=== PATIENT | female | born 1980 | race Caucasian/White ===

== ENCOUNTER 2017-04-13 23:45 | Inpatient (IN) | payer OTHER ==
[2017-04-13] MEDS ORDERED: CITRIC ACID/SODIUM CITRATE 30 ML UNIT-DOSE CUP PO ONE (23:54)
[2017-04-13] MEDS ORDERED: ELECTROLYTE-148 SOLN 500 ML IV ONE (23:54)
--- NOTE | 2017-04-14 00:02 | HP ---
Past Medical History - Admission Chief Complaint: Labor pain History of Present Illness: 37 yo , @ 40.4 weeks gestation, EDC 04/09/17, presents c/o labor pain. She had one previous . History Source: Patient Limitations to Obtaining History: No Limitations - Past Medical History ...: 8 ...Para: 5 - Past Surgical History Past Surgical History: Yes: Hx Myomectomy: No Hx Transabdominal Cerclage: No - Smoking History Smoking history: Never smoked Aproximately how many cigarettes per day: 0 - Alcohol/Substance Use Hx Alcohol Use: No - Social History History of Recent Travel: No Home Medications - Allergies Allergies/Adverse Reactions: Allergies Allergy/AdvReac Type Severity Reaction Status Date / Time Penicillins Allergy Difficulty Verified 11/30/16 18:12 Breathing - Home Medications Home Medications: Ambulatory Orders NK [No Known Home Medication] 10/03/16 Family Disease History - Family Disease History Family History: Unremarkable Review of Systems - Review of Systems Constitutional: reports: No Symptoms Eyes: reports: No Symptoms HENT: reports: No Symptoms Neck: reports: No Symptoms Respiratory: reports: No Symptoms Gastrointestinal: reports: No Symptoms Genitourinary: reports: Pain Breasts: reports: No Symptoms Reported Musculoskeletal: reports: No Symptoms Integumentary: reports: No Symptoms Neurological: reports: No Symptoms Endocrine: reports: No Symptoms Hematology/Lymphatic: reports: No Symptoms Psychiatric: reports: No Symptoms Pain Intensity: 9 Physical Exam - Maternity Constitutional: Yes: Well Nourished Eyes: Yes: Conjunctiva Clear HENT: Yes: Atraumatic Neck: Yes: Supple, Trachea Midline Cardiovascular: Yes: Regular Rate and Rhythm Lungs: Clear to auscultation - Abdominal Exam/OB Number of Fetuses: Single Presentation: Vertex Contractions: Yes Regularity: Irregular Intensity: Strong - Vaginal Exam/OB Vaginal Bleediing: No Dilatation (cm): 0 Amniotic Membrane Status: Intact Presentation: Vertex/Position Station: -3 - Physical Exam ...Motor Strength: WNL Psychiatric: Yes: Alert, Oriented Problem List - Problems (1) Pain during labor Code(s): O99.89 - OTH DISEASES AND CONDITIONS COMPL PREG/CHLDBRTH R52 - PAIN, UNSPECIFIED Assessment/Plan Active labor Previous Pre op for repeat Consent signed Anesthesia to see patient
--- NOTE | 2017-04-14 00:03 | OP ---
Operative Note - Note: Operative Date: 04/14/17 Pre-Operative Diagnosis: Previous in labor Operation: Repeat Findings: Baby boy in ROT position Post-Operative Diagnosis: Same as Pre-op Surgeon: Kateryna Mendez Channel Process Plant Operator: Heidi Escalera Anesthesia: General Specimens Removed: Placenta Estimated Blood Loss (mls): 700
[2017-04-14 00:13] VITALS: BMI 29.7
[2017-04-14 00:18] LABS: BASOPHIL 0.7 % (0-2.0); EOSINOPHIL 0.6 % (0-4.5); MCHC 34.2 g/dl (32.0-36.0); MEAN CELL VOLUME 93.5 fl (80-96); MEAN PLT VOLUME 9.1 fl (7.5-11.1); NEUTROPHILS 73.1 % (42.8-82.8); PLATELET COUNT 286 K/MM3 (134-434); RDW 13.2 % (11.6-15.6); WHITE BLOOD COUNT 12.8 K/mm3 (4.0-10.0)
[2017-04-14 00:30] LABS: INR 0.95 (0.82-1.09); PROTHROMBIN TIME (PATIENT) 10.4 SEC (9.98-11.88)
[2017-04-14 00:33] LABS: ACTIVATED PTT 25.5 SECONDS (26.9-34.4)
[2017-04-14 01:36] LABS: ANION GAP 12 (8-16); CALCIUM 9.5 mg/dL (8.5-10.1); CO2 25 mmol/L (21-32); CREATININE 0.6 mg/dL (0.55-1.02); GLUCOSE,RANDOM 83 mg/dL (74-106)
[2017-04-14 01:49] LABS: ARTERIAL BLD GAS O2 SATURATION 74.4 % (90-98.9); ARTERIAL BLOOD GAS BASE EXCESS -0.9 meq/l (-2-2); ARTERIAL BLOOD GAS HCO3 25.3 meq/L (22-26); ARTERIAL BLOOD GAS pH 7.33 (7.35-7.45); PT. ON O2? NO
[2017-04-14 01:50] LABS: LPM/O2% 21%; TYPE OF O2 ROOM AIR
[2017-04-14 01:51] LABS: ARTERIAL BLOOD GAS PO2 37.6 mmHg (80-100)
[2017-04-14 01:53] LABS: VENOUS PH 7.35 (7.32-7.42)
[2017-04-14] MEDS ORDERED: oxyCODONE HCL 5 MG TABLET PO PRN (01:55)
[2017-04-14] MEDS ORDERED: METHYLERGONOVINE MALEATE 0.2 MG/1 ML AMP IM PRN (01:55)
--- NOTE | 2017-04-14 02:02 | DS ---
Physical Exam-ADMINISTRATIVE SPECIALIST Vital Signs: Vital Signs Temperature 98.7 F 04/13/17 23:54 Pulse Rate 101 H 04/13/17 23:54 Respiratory Rate 20 04/13/17 23:54 Blood Pressure 139/80 04/13/17 23:54 O2 Sat by Pulse Oximetry (%) Constitutional: Yes: Well Nourished Eyes: Yes: Conjunctiva Clear HENT: Yes: Atraumatic Neck: Yes: Supple, Trachea Midline Cardiovascular: Yes: Regular Rate and Rhythm Respiratory: Yes: Regular, CTA Bilaterally Gastrointestinal: Yes: Normal Bowel Sounds External Genitalia: Yes: Normal Vaginal Exam: Yes: Normal Cervix: Yes: Normal Uterus: Yes: Firm Wound/Incision: Yes: Dequan Intact Neurological: Yes: Alert, Oriented ...Motor Strength: WNL Psychiatric: Yes: Alert, Oriented Labs: CBC, BMP 04/14/17 00:00 04/14/17 00:00 Delivery, Single - Feeding Plan Initial Plan: Elected not to breastfeed exclusively throughout hospitalization Discharge Summary Reason For Visit: ADMIT C/SECTION Current Active Problems Pain during labor (Acute) Status post repeat low transverse section (Acute) Procedures: Principal: Repeat Low Transverse Hospital Course: Routine Post op care Condition: Good - Instructions Diet, Activity, Other Instructions: Regular diet Wound care No driving, no lifting x 4 weeks Disposition: HOME - Home Medications Comprehensive Discharge Medication List: Ambulatory Orders Ferrous Sulfate [Feosol] 325 mg PO DAILY 04/13/17 Vit/Iron Fumarate/FA [ Tablet] 1 tablet PO DAILY 04/13/17 Albuterol Sulfate Inhaler - 2 puff PO PRN PRN 04/14/17 Salmeterol/Fluticasone [Advair 250Mcg/50Mcg -] 1 inh PO PRN PRN 04/14/17
[2017-04-14] MEDS ORDERED: ONDANSETRON 4 MG/2 ML VIAL IVPUSH PRN (02:19)
[2017-04-14] MEDS ORDERED: PROMETHAZINE HCL 25 MG/1 ML VIAL IVPB PRN (02:19)
[2017-04-14] MEDS: HYDROmorphone *PCA* 10MG/50ML DISP.SYRIN PCA SCH ×2 (02:31→15:05)
--- NOTE | 2017-04-14 08:53 | OP ---
DATE OF OPERATION: 04/13/2017 PREOPERATIVE DIAGNOSIS: Previous section, in labor. POSTOPERATIVE DIAGNOSIS: Previous section, in labor. PROCEDURE: Repeat low transverse section. SURGEON: Kateryna Mendez MD ENVIRONMENTAL HEALTH PHYSICIAN: Heidi Escalera DO ANESTHESIA: General. COMPLICATIONS: None. ESTIMATED BLOOD LOSS: 700 mL DESCRIPTION OF PROCEDURE: Patient was taken to the operating room where a spinal anesthesia was attempted. Patient was then prepped and draped in proper sterile fashion. When spinal anesthesia was not found to be adequate, general anesthesia was performed. A Pfannenstiel skin incision was made and carried down to the underlying layer of fascia. The fascia was incised in the midline and extended laterally. The superior aspect of the fascial incision was then grasped with a Solomon clamp, elevated, and the rectus muscle dissected off bluntly. Attention was then turned to the anterior aspect of the fascial incision which, in a similar fashion, was then grasped with a Solomon clamp, elevated, and the rectus muscle dissected off bluntly. The rectus muscle was then in the midline. The peritoneum identified and entered sharply with the Metzenbaum scissors. The vesicouterine peritoneum was then grasped with a pickup and entered with the Metzenbaum scissors. This incision was extended laterally, and a bladder flap created digitally. The bladder blade was inserted. Then, using a 10 blade, the lower uterine segment was incised and extended laterally. Then, the head delivered atraumatically. Nose and mouth were suctioned, and the cord clamped and cut. The infant was handed to the waiting employment specialist/program manager. The placenta was removed manually. The uterus exteriorized and cleared of all clots and debris. The uterine incision was repaired using 0 Biosyn in a running locked fashion. A second layer of the same suture was used as a means to provide excellent hemostasis. Then, the pelvis was completely irrigated. The uterus was returned to the abdomen. The peritoneum was closed using 2-0 Biosyn. The fascia was reapproximated using 0 Vicryl in a running fashion, and the skin was closed with guido. Patient tolerated the procedure well. Patient was then taken to PACU in stable condition. PATHOLOGY: Placenta. Melany [id number]
[2017-04-14] MEDS ORDERED: D5 LR IV SCH (09:30)
[2017-04-14] MEDS ORDERED: KCL IV SCH (09:30)
[2017-04-14] MEDS: D5W-LR W/ 20 UNITS OXYTOCIN 1,000 ML IV SCH (10:00)
[2017-04-14] MEDS ORDERED: PCA PUMP KEY 1 EACH EACH ONE ×6 (12:37→18:54)
[2017-04-14] MEDS: SIMETHICONE 80 MG TAB.CHEW (FP) PO PRN ×2 (12:52→20:43)
--- NOTE | 2017-04-14 13:52 | PN ---
Progress Note (short form) - Note Progress Note: Anesthesiology Pain Service POD#0 s/p C/S. Pt. on Dilaudid CUTTING MACHINE OFFBEARER post-op. Was c/o increased pain earlier and has since received bolus dosing in addition to CUTTING MACHINE OFFBEARER; she now feels a little better. Will continue CUTTING MACHINE OFFBEARER for now as well as intermittent breakthrough doses as ordered. VSS.
--- NOTE | 2017-04-14 14:17 | PN ---
Post Progress Note - Subjective Subjective: 37 yo Para 6 status post , seen and evaluated. Doing well. Post Day: 1 Type of Delivery: Repeat C/S Vital Signs: Vital Signs Temperature 98.1 F 04/14/17 07:15 Pulse Rate 77 04/14/17 07:15 Respiratory Rate 20 04/14/17 07:15 Blood Pressure 106/54 04/14/17 07:15 O2 Sat by Pulse Oximetry (%) 100 04/14/17 03:10 Breast Exam: Yes: Soft Incision: Yes: Dressing dry and intact Lochia: Yes: Rubra Lochia, amount: Small Extremities: Yes: Calves non-tender Perineum: Yes: Intact Activity: Other (She's lying in bed) - Labs Labs: CBC WBC 12.8 K/mm3 (4.0-10.0) H 04/14/17 00:00 RBC 3.96 M/mm3 (3.60-5.2) 04/14/17 00:00 Hgb 12.7 GM/dL (10.7-15.3) 04/14/17 00:00 Hct 37.0 % (32.4-45.2) 04/14/17 00:00 MCV 93.5 fl (80-96) 04/14/17 00:00 MCHC 34.2 g/dl (32.0-36.0) 04/14/17 00:00 RDW 13.2 % (11.6-15.6) 04/14/17 00:00 Plt Count 286 K/MM3 (134-434) D 04/14/17 00:00 MPV 9.1 fl (7.5-11.1) 04/14/17 00:00 Neutrophils % 73.1 % (42.8-82.8) 04/14/17 00:00 Lymphocytes % 18.6 % (8-40) 04/14/17 00:00 Monocytes % 7.0 % (3.8-10.2) 04/14/17 00:00 Eosinophils % 0.6 % (0-4.5) 04/14/17 00:00 Basophils % 0.7 % (0-2.0) 04/14/17 00:00 Problem List - Problems (1) Pain during labor Code(s): O99.89 - OTH DISEASES AND CONDITIONS COMPL PREG/CHLDBRTH R52 - PAIN, UNSPECIFIED Assessment/Plan Status post Ambulation Analgesia as needed Continue Post op care
[2017-04-14] MEDS ORDERED: HYDROmorphone *PCA* 10MG/50ML DISP.SYRIN PCA ONE (14:59)
[2017-04-14] MEDS ORDERED: ALBUTEROL SO4 0.083% IH SOL 2.5 MG/3 ML VIAL.NEB. NEB ONE (20:12)
[2017-04-14] MEDS: IBUPROFEN 600 MG TABLET (FP) PO PRN (20:42)
[2017-04-14] MEDS: ACETAMINOPHEN 325 MG TABLET (FP) PO PRN (21:00)
[2017-04-15] MEDS: ACETAMINOPHEN 325 MG TABLET (FP) PO PRN ×5 (00:29→20:32)
[2017-04-15] MEDS: SIMETHICONE 80 MG TAB.CHEW (FP) PO PRN ×5 (00:29→20:32)
[2017-04-15] MEDS: IBUPROFEN 600 MG TABLET (FP) PO PRN ×5 (00:30→20:31)
[2017-04-15] MEDS: diphenhydrAMINE HCL 25 MG CAPSULE (FP) PO PRN ×3 (01:31→21:17)
[2017-04-15] MEDS ORDERED: BISACODYL 10 MG SUPP.RECT RC PRN (01:55)
--- NOTE | 2017-04-15 08:16 | PN ---
Progress Note (short form) - Note Progress Note: pod 2 s/p c/s doing well. has cramps CBC, BMP 04/14/17 00:00 04/14/17 00:00 Last Vital Signs Temp Pulse Resp BP Pulse Ox 98.5 F 73 18 110/67 100 04/15/17 00:41 04/15/17 00:41 04/15/17 00:41 04/15/17 00:41 04/14/17 03:10 abdomen soft, no distension, no cva , incision dry, clean no calf tenderness plan ambulate, advance diet , cbc in am
[2017-04-15 08:38] LABS: BASOPHIL 0.4 % (0-2.0); EOSINOPHIL 0.4 % (0-4.5); MCH 32.6 pg (25.7-33.7); MCHC 33.9 g/dl (32.0-36.0); MEAN CELL VOLUME 96.2 fl (80-96); MEAN PLT VOLUME 8.9 fl (7.5-11.1); NEUTROPHILS 83.4 % (42.8-82.8); PLATELET COUNT 201 K/MM3 (134-434); RDW 13.6 % (11.6-15.6); WHITE BLOOD COUNT 14.9 K/mm3 (4.0-10.0)
[2017-04-15] MEDS ORDERED: ALBUTEROL SO4 0.083% IH SOL 2.5 MG/3 ML VIAL.NEB. NEB ONE (10:30)
[2017-04-15] MEDS ORDERED: PNEUMOC 13-VAL CONJ-DIP CRM/PF 0.5 ML DISP.SYRIN IM ONE (11:00)
--- NOTE | 2017-04-15 11:29 | PN ---
Progress Note (short form) - Note Progress Note: Anesthesia post op note, POD#1 S/P repeat , with failed spinal, converted to GETA. Pat seen and examined. Pat On Po meds, BACTERIOLOGIST INDUSTRIAL D/C'd. Pain well controlled. Pat is complaining about her breathing, feels short of breath when tries to walk. Tightness in chest while sitting, "feels like my asthma". History of multiple pnumonias , last one in her first trimester. Required 2-3 po steroid treatments during her . Also C/O swelling in her abdomen. Pat sitting at the edge of the bed. Paient breathing 14-16/min, not in acute distress, coughing few times while talking, hoarse voice.SpO2:98% VSS. Pulm: CTA, Bilat. No whhezing or ronchi.Cor: RRR. No GMR. Abd, distended, No TTP. Patient is receiving breathing treatment daily. suggesting news camera person consultation for assessment and possible steroid treatment. also informed OB to evaluate her abdomen. Constipation? Message left for Dr. Davies. Informed the RN. Will follow up.
[2017-04-15] MEDS ORDERED: ALBUTEROL SO4 0.083% IH SOL 2.5 MG/3 ML VIAL.NEB. NEB PRN (11:35)
[2017-04-16] MEDS: SIMETHICONE 80 MG TAB.CHEW (FP) PO PRN ×4 (01:11→20:21)
[2017-04-16] MEDS: ACETAMINOPHEN 325 MG TABLET (FP) PO PRN ×4 (01:11→20:21)
[2017-04-16] MEDS: IBUPROFEN 600 MG TABLET (FP) PO PRN ×4 (01:11→20:21)
--- NOTE | 2017-04-16 08:16 | PN ---
Post Progress Note - Subjective Subjective: c/o gaseous discomfort voiding without difficulty no c/o breathing difficulty today. Post Day: 2 Type of Delivery: Repeat C/S Vital Signs: Vital Signs Temperature 97.9 F 04/16/17 06:13 Pulse Rate 63 04/16/17 06:13 Respiratory Rate 20 04/16/17 06:13 Blood Pressure 105/55 04/16/17 06:13 O2 Sat by Pulse Oximetry (%) 100 04/15/17 21:00 Breast Exam: Yes: Soft. No: Engorged Uterus: Yes: Fundus Firm, Fundus below umbilicus, Non-tender Incision: Yes: Dressing dry and intact (to be changed ) Abdomen/GI: Yes: Abdomen soft, Abdominal Distention (BS active ), Tender, Passing flatus, Tolerating PO (diet ) Lochia: Yes: Rubra Lochia, amount: Moderate Extremities: Yes: Calves non-tender Perineum: Yes: Intact Activity: Ambulating - Labs Labs: CBC WBC 14.9 K/mm3 (4.0-10.0) H 04/15/17 07:20 RBC 3.36 M/mm3 (3.60-5.2) L 04/15/17 07:20 Hgb 11.0 GM/dL (10.7-15.3) D 04/15/17 07:20 Hct 32.4 % (32.4-45.2) 04/15/17 07:20 MCV 96.2 fl (80-96) H 04/15/17 07:20 MCHC 33.9 g/dl (32.0-36.0) 04/15/17 07:20 RDW 13.6 % (11.6-15.6) 04/15/17 07:20 Plt Count 201 K/MM3 (134-434) D 04/15/17 07:20 MPV 8.9 fl (7.5-11.1) 04/15/17 07:20 Neutrophils % 83.4 % (42.8-82.8) H 04/15/17 07:20 Lymphocytes % 9.5 % (8-40) D 04/15/17 07:20 Monocytes % 6.3 % (3.8-10.2) 04/15/17 07:20 Eosinophils % 0.4 % (0-4.5) 04/15/17 07:20 Basophils % 0.4 % (0-2.0) 04/15/17 07:20 Assessment/Plan stable Plan ct incentive spirometer encourage ambulaton
--- NOTE | 2017-04-16 14:05 | PN ---
Progress Note (short form) - Note Progress Note: janette Note: Anesthesia post op note,POD#2 S/P under GETA. Pat seen and examined,VSS. No apparent post anesthesia complications. Improved breathing with incentive spirometry and inhalation treatments. Signed off.
[2017-04-16] MEDS: D5W-LR W/ 20 UNITS OXYTOCIN 1,000 ML IV SCH (15:29)
[2017-04-17] MEDS: IBUPROFEN 600 MG TABLET (FP) PO PRN ×4 (04:01→20:26)
[2017-04-17] MEDS: SIMETHICONE 80 MG TAB.CHEW (FP) PO PRN ×4 (04:01→20:26)
[2017-04-17] MEDS: ACETAMINOPHEN 325 MG TABLET (FP) PO PRN ×4 (04:01→20:26)
[2017-04-17 07:30] LABS: BASOPHIL 0.4 % (0-2.0); EOSINOPHIL 1.5 % (0-4.5); MCH 32.3 pg (25.7-33.7); MCHC 33.9 g/dl (32.0-36.0); MEAN CELL VOLUME 95.1 fl (80-96); MEAN PLT VOLUME 8.7 fl (7.5-11.1); NEUTROPHILS 77.3 % (42.8-82.8); PLATELET COUNT 224 K/MM3 (134-434); RDW 13.4 % (11.6-15.6); WHITE BLOOD COUNT 9.2 K/mm3 (4.0-10.0)
--- NOTE | 2017-04-17 07:39 | PN ---
Post Progress Note - Subjective Subjective: c/o pain on rt side of incision passing flatus Post Day: 3 Type of Delivery: Repeat C/S Vital Signs: Vital Signs Temperature 98.9 F 04/16/17 20:50 Pulse Rate 83 04/16/17 20:50 Respiratory Rate 20 04/16/17 20:50 Blood Pressure 111/67 04/16/17 20:50 O2 Sat by Pulse Oximetry (%) 100 04/15/17 21:00 Breast Exam: Yes: Soft, Other (BF ). No: Engorged, Cracked Nipples Uterus: Yes: Fundus Firm, Fundus below umbilicus, Non-tender Incision: Yes: [place] intact. No: Redness, Oozing Abdomen/GI: Yes: Abdomen soft, Passing flatus, Tolerating PO (diet). No: Abdominal Distention, Tender Lochia: Yes: Rubra Lochia, amount: Moderate Extremities: Yes: Calves non-tender, Edema Perineum: Yes: Intact Activity: Ambulating - Labs Labs: CBC WBC 14.9 K/mm3 (4.0-10.0) H 04/15/17 07:20 RBC 3.36 M/mm3 (3.60-5.2) L 04/15/17 07:20 Hgb 11.0 GM/dL (10.7-15.3) D 04/15/17 07:20 Hct 32.4 % (32.4-45.2) 04/15/17 07:20 MCV 96.2 fl (80-96) H 04/15/17 07:20 MCHC 33.9 g/dl (32.0-36.0) 04/15/17 07:20 RDW 13.6 % (11.6-15.6) 04/15/17 07:20 Plt Count 201 K/MM3 (134-434) D 04/15/17 07:20 MPV 8.9 fl (7.5-11.1) 04/15/17 07:20 Neutrophils % 83.4 % (42.8-82.8) H 04/15/17 07:20 Lymphocytes % 9.5 % (8-40) D 04/15/17 07:20 Monocytes % 6.3 % (3.8-10.2) 04/15/17 07:20 Eosinophils % 0.4 % (0-4.5) 04/15/17 07:20 Basophils % 0.4 % (0-2.0) 04/15/17 07:20 Assessment/Plan stable plan ct po care
[2017-04-17] MEDS ORDERED: oxyCODONE HCL 5 MG TABLET ONE (09:13)
[2017-04-18] MEDS: SIMETHICONE 80 MG TAB.CHEW (FP) PO PRN ×2 (01:29→08:26)
[2017-04-18] MEDS: ACETAMINOPHEN 325 MG TABLET (FP) PO PRN ×2 (01:29→08:27)
[2017-04-18] MEDS: IBUPROFEN 600 MG TABLET (FP) PO PRN ×2 (01:31→08:26)
[2017-04-18 08:43] VITALS: BP 114/76; PULSE 74; TEMP 98.8
--- NOTE | 2017-04-18 10:42 | PN ---
Post Progress Note - Subjective Subjective: c/o pain on Rt side of incision gaseous discomfort is less bm not done yet Post Day: 4 Type of Delivery: Repeat C/S Vital Signs: Vital Signs Temperature 98.8 F 04/18/17 08:39 Pulse Rate 74 04/18/17 08:39 Respiratory Rate 20 04/18/17 08:39 Blood Pressure 114/76 04/18/17 08:39 O2 Sat by Pulse Oximetry (%) 100 04/15/17 21:00 Breast Exam: Yes: Soft, Other (BF ). No: Engorged Uterus: Yes: Fundus Firm, Fundus below umbilicus, Non-tender Incision: Yes: Guido intact (guido removed , wound healing satisfactory , edges well approximated, steri strips used ). No: Redness, Oozing Abdomen/GI: Yes: Abdomen soft, Passing flatus, Tolerating PO (diet ). No: Abdominal Distention, Tender Lochia: Yes: Rubra Lochia, amount: Moderate Extremities: Yes: Calves non-tender Perineum: Yes: Intact Activity: Ambulating - Labs Labs: CBC WBC 9.2 K/mm3 (4.0-10.0) D 04/17/17 06:00 RBC 3.27 M/mm3 (3.60-5.2) L 04/17/17 06:00 Hgb 10.5 GM/dL (10.7-15.3) L 04/17/17 06:00 Hct 31.1 % (32.4-45.2) L 04/17/17 06:00 MCV 95.1 fl (80-96) 04/17/17 06:00 MCHC 33.9 g/dl (32.0-36.0) 04/17/17 06:00 RDW 13.4 % (11.6-15.6) 04/17/17 06:00 Plt Count 224 K/MM3 (134-434) 04/17/17 06:00 MPV 8.7 fl (7.5-11.1) 04/17/17 06:00 Neutrophils % 77.3 % (42.8-82.8) 04/17/17 06:00 Lymphocytes % 13.4 % (8-40) D 04/17/17 06:00 Monocytes % 7.4 % (3.8-10.2) 04/17/17 06:00 Eosinophils % 1.5 % (0-4.5) D 04/17/17 06:00 Basophils % 0.4 % (0-2.0) 04/17/17 06:00 Assessment/Plan stable plan Dulcolax suppository [place] before discharge . discharge today. follow up in the clinic in 2 weeks
--- NOTE | 2017-04-18 10:55 | PATH ---
Surgical Pathology Report Patient Name: VINCE PARIKH Med. Rec. #: [id number] /Age/Gender: 1980 (Age: 37) / F Account: [id number] Location: [facility] OBS/CAP MAKER Taken: 04/14/2017 Received: 04/14/2017 Reported: 04/18/2017 Physicians: Kateryna Mendez M.D. Specimen(s) Received PLACENTA Clinical History , 40.4 weeks, x4, at 32 weeks, previous c/section in labor; IAB x1, SAB x1; asthma, anemia, depression, PID, advanced maternal age, kidney stones C/section Final Diagnosis PLACENTA, DELIVERY: FOCALLY DISRUPTED THIRD TRIMESTER PLACENTA WITH MILD INCREASE IN PREVILLOUS, PERIVILLOUS, AND PRECHORIONIC FIBRIN DEPOSITION, CALCIFICATIONS, THREE VESSEL UMBILICAL CORD, AND PLACENTAL MEMBRANES WITH FOCAL AMNION HYPERPLASIA AND FOCAL LAMELLAR NECROSIS. Electronically Signed Floyd Ayala M.D. Gross Description The specimen is received fresh, labeled "placenta" and is a 409 gram, 18.0 x 15.5 x 2.7 cm placenta with attached membranes and umbilical cord. The attached membranes are hopkins, thickened cloudy and insert marginally. The umbilical cord measures 31 cm in length and averages 0.9 cm in diameter. The cord inserts centrally. No true knots or strictures are identified. Cut surface of the umbilical cord reveals 3 vessels. The surface is park-blue with fibrin deposition and appropriate caliber vessels. The maternal surface is red-brown with focal defects. Sectioning reveals red-brown, spongy parenchyma. No focal lesions are identified. In Flight Refueling Manager sections are submitted in three cassettes as follows: 1- membrane rolls and umbilical cord; 2-3- full thickness sections of placenta. /04/15/2017 saudi04/15/2017
== END 2017-04-18 11:40 | disposition home or self-care (01) | DRG 540 ==
LOC: JLDR 23:45 → J3W 04-14 04:05
PROVIDERS: ADMIT Obstetrics & Gynecology; ATTEND Obstetrics & Gynecology
PROC: 10D00Z1 Extraction of Products of Conception, Low, Open Approach (ICD-10-PCS; principal; 2017-04-14)
DX: O34.211 Maternal care for low transverse scar from previous cesarean delivery (principal); Z3A.40 40 weeks gestation of pregnancy; Z37.0 Single live birth
CPT/HCPCS: 36415; 36600; 71020-TC; 80048; 82803; 85025; 85610; 85730; 86593; 86850; 86900; 86901; 88307-TC; 90670; 94010; 94640

== ENCOUNTER 2021-08-05 20:35 | Emergency (ER) | payer OTHER ==
[2021-08-05 20:40] VITALS: BP 133/77; PULSE 93; TEMP 97.6; BMI 26.2
[2021-08-05] MEDS ORDERED: PANTOPRAZOLE SODIUM 40 MG VIAL IVPUSH ONE (20:56)
[2021-08-05] MEDS ORDERED: ACETAMINOPHEN 1000 MG/100 ML VIAL IVPB ONE ×2 (20:56→21:08)
[2021-08-05] MEDS ORDERED: ACETAMINOPHEN INJECTION 100 ML IVPB ONE (21:18)
[2021-08-05 22:19] LABS: BASO % 0.6 % (0-2.0); EOS % 2.7 % (0-4.5); HEMATOCRIT 39.3 % (32.4-45.2); HEMOGLOBIN 13.4 GM/dL (10.7-15.3); LYMPH % 26.1 % (8-40); MCH 29.3 pg (25.7-33.7); MCHC 34.2 g/dl (32.0-36.0); MEAN CELL VOLUME 85.8 fl (80-96); MEAN PLT VOLUME 8.2 fl (7.5-11.1); MONO % 8.3 % (3.8-10.2); NEUT % 62.3 % (42.8-82.8); PLATELET COUNT 335 10^3/uL (134-434); RBC 4.58 M/mm3 (3.60-5.2); RDW 12.6 % (11.6-15.6); WHITE BLOOD COUNT 9.4 K/mm3 (4.0-10.0)
[2021-08-05 22:28] LABS: URINE APPEARANCE CLEAR; URINE BILIRUBIN NEGATIVE (NEGATIVE); URINE COLOR YELLOW; URINE GLUCOSE (UA) NEGATIVE (NEGATIVE); URINE KETONE NEGATIVE (NEGATIVE); URINE LEUK ESTERASE NEGATIVE (NEGATIVE); URINE NITRITE NEGATIVE (NEGATIVE); URINE PROTEIN NEGATIVE (NEGATIVE); URINE UROBILINOGEN 0.2 mg/dL (0.2-1.0)
[2021-08-05 22:36] LABS: HCG,QUALITATIVE URINE Negative; PROTHROMBIN TIME (PATIENT) 11.7 SEC (9.7-13.0)
[2021-08-05 22:39] LABS: ACTIVATED PTT 32.3 SECONDS (25.2-36.5)
[2021-08-05 22:46] LABS: CHLORIDE 104 mmol/L (98-107); SODIUM 140 mmol/L (136-145)
[2021-08-05 22:49] LABS: ALBUMIN 3.7 g/dl (3.4-5.0); ANION GAP 8 MMOL/L (8-16); BLOOD UREA NITROGEN 13.1 mg/dL (7-18); CALCIUM 9.2 mg/dL (8.5-10.1); CO2 28 mmol/L (21-32)
[2021-08-05 22:50] LABS: GLUCOSE,RANDOM 82 mg/dL (74-106)
[2021-08-05 22:52] LABS: SGOT/AST 24 U/L (15-37); SGPT/ALT 34 U/L (13-61)
[2021-08-05 22:53] LABS: CREATININE 0.7 mg/dL (0.55-1.3)
[2021-08-05 22:54] LABS: BILIRUBIN,TOTAL 0.4 mg/dL (0.2-1); TOT PROT 7.2 g/dl (6.4-8.2)
[2021-08-05 22:55] LABS: ALK PHOS 113 U/L (45-117)
== END 2021-08-06 01:02 ==
LOC: JER 20:35
PROC: 3E0333Z Introduction of Anti-inflammatory into Peripheral Vein, Percutaneous Approach (ICD-10-PCS; principal; 2021-08-05)
DX: R10.30 Lower abdominal pain, unspecified (principal)
CPT/HCPCS: 36415; 74176-TC; 80053; 81003; 84702; 84703; 85025; 85610; 85730; 86850; 86900; 86901; 87086; 99284-25; J0131

== ENCOUNTER 2023-10-24 04:43 | Inpatient (IN) | payer OTHER ==
[2023-10-24] MEDS ORDERED: LIDOCAINE HCL/PF 2% SDV 5ML VIAL ONE (07:25)
[2023-10-24] MEDS ORDERED: SUCCINYLCHOLINE CHLORIDE 200 MG/10 ML SYRINGE ONE (07:26)
[2023-10-24] MEDS ORDERED: ROCURONIUM BROMIDE 50 MG/5 ML SYRINGE ONE ×2 (07:26→10:16)
[2023-10-24] MEDS ORDERED: PROPOFOL 20 ML ONE ×2 (07:26→12:27)
[2023-10-24] MEDS ORDERED: MIDAZOLAM HCL 2 MG/2 ML SINGLE DOSE VIAL ONE (07:26)
[2023-10-24] MEDS ORDERED: BUPIVACAINE HCL/PF 0.25% (2.5MG/ML) 10 ML VIAL ONE (07:31)
[2023-10-24] MEDS ORDERED: cefOXitin SODIUM 2 GM VIAL (RESTRICTED TO ID) IVPB ONE (07:31)
[2023-10-24] MEDS ORDERED: HEPARIN NA (PORCINE) 5,000 UNITS/ML 1ML VIAL ONE (07:31)
[2023-10-24] MEDS ORDERED: INDOCYANINE GREEN 25 MG/10 ML VIAL IVPUSH ONE (07:31)
[2023-10-24] MEDS: cefOXitin SODIUM 2 GM VIAL (RESTRICTED TO ID) IVPB ONE (08:25)
[2023-10-24] MEDS ORDERED: DEXAMETHASONE SOD PHOSPHATE 4 MG/1 ML VIAL ONE (08:29)
[2023-10-24] MEDS: BUPIVACAINE HCL/PF 0.25% (2.5MG/ML) 10 ML VIAL IJ ONE ×2 (09:00)
[2023-10-24] MEDS ORDERED: HYDROmorphone HCl 2 MG/ML VIAL ONE (10:24)
[2023-10-24] MEDS ORDERED: ONDANSETRON 4 MG/2 ML VIAL ONE ×2 (12:28→13:59)
[2023-10-24] MEDS ORDERED: KETOROLAC TROMETHAMINE 30 MG/1 ML VIAL ONE ×2 (12:28→18:30)
[2023-10-24] MEDS ORDERED: ACETAMINOPHEN INJECTION 100 ML IVPB ONE (12:41)
[2023-10-24] MEDS ORDERED: BACITRACIN ZINC 15 GM TUBE TOPICAL OINTMENT ONE (13:24)
[2023-10-24] MEDS ORDERED: PROMETHAZINE HCL 25 MG/1 ML VIAL IVPB PRN ×2 (13:52→17:50)
[2023-10-24] MEDS: ONDANSETRON 4 MG/2 ML VIAL IVPUSH PRN (14:00)
[2023-10-24] MEDS ORDERED: ONDANSETRON 4 MG/2 ML VIAL IVPUSH PRN (17:50)
[2023-10-24] MEDS: KETOROLAC TROMETHAMINE 15 MG/ML VIAL IVPUSH PRN (18:32)
[2023-10-24] MEDS ORDERED: ACETAMINOPHEN 500 MG TABLET (FP) ONE (19:13)
[2023-10-24] MEDS: ACETAMINOPHEN 500 MG TABLET (FP) PO STA (19:15)
[2023-10-24] MEDS: LACTATED RINGERS SOLUTION 1,000 ML IV SCH (20:52)
[2023-10-25 01:23] VITALS: BMI 22.4
[2023-10-25] MEDS ORDERED: PATIENT'S OWN MEDICATION (NON-FORMULARY) (Salmeterol/Fluticasone [Advair 250mcg/50mcg -] 1 PO PRN (08:07)
[2023-10-25] MEDS ORDERED: ALBUTEROL SULFATE PO PRN (08:07)
[2023-10-25] MEDS: oxyCODONE HCL 5 MG TABLET PO PRN ×2 (09:04→17:33)
[2023-10-25] MEDS: SODIUM CHLORIDE 1,000 ML IV STA (09:06)
[2023-10-25] MEDS ORDERED: ALBUTEROL SO4 HFA INHALER IH PRN (09:13)
[2023-10-25] MEDS: LACTATED RINGERS SOLUTION 1,000 ML IV SCH (09:27)
[2023-10-25 09:29] LABS: BASO % 0.4 % (0-2.0); EOS % 0.1 % (0-4.5); HEMATOCRIT 31.9 % (32.4-45.2); HEMOGLOBIN 10.4 GM/dL (10.7-15.3); LYMPH % 16.9 % (8-40); MCH 27.3 pg (25.7-33.7); MCHC 32.5 g/dl (32.0-36.0); MEAN PLT VOLUME 8.3 fl (7.5-11.1); MONO % 8.2 % (3.8-10.2); NEUT % 74.4 % (42.8-82.8); PLATELET COUNT 418 10^3/uL (134-434)
[2023-10-25] MEDS: ACETAMINOPHEN 1000 MG/100 ML BAG IVPB SCH (09:30)
[2023-10-25 09:46] LABS: POTASSIUM 4.1 mmol/L (3.5-5.1)
[2023-10-25 09:59] LABS: CALCIUM 7.9 mg/dL (8.5-10.1)
[2023-10-25 10:00] LABS: ALBUMIN 2.3 g/dl (3.4-5.0); BLOOD UREA NITROGEN 6.5 mg/dL (7-18)
[2023-10-25 10:03] LABS: CREATININE 0.6 mg/dL (0.55-1.3)
[2023-10-25 10:05] LABS: BILIRUBIN,TOTAL 0.6 mg/dL (0.2-1)
[2023-10-25 10:08] LABS: TOT PROT 5.4 g/dl (6.4-8.2)
[2023-10-25] MEDS: ENOXAPARIN NA (PORCINE) 40 MG/0.4 ML DISP.SYRIN SQ SCH (12:35)
[2023-10-25] MEDS: KETOROLAC TROMETHAMINE 15 MG/ML VIAL IVPUSH SCH (13:21)
[2023-10-25] MEDS: LIDOCAINE 4% PATCH TP SCH (17:04)
[2023-10-25] MEDS: ONDANSETRON 4 MG/2 ML VIAL IVPUSH PRN (19:33)
[2023-10-25] MEDS: FAMOTIDINE 20 MG/50 ML IVPB 20 MG/50 ML MG IVPB SCH (21:32)
[2023-10-25] MEDS: LIDOCAINE PATCH REMOVAL MC SCH (22:53)
[2023-10-25] MEDS: ALPRAZolam 1 MG TABLET PO PRN (23:08)
[2023-10-26 09:32] LABS: BASO % 0.5 % (0-2.0); EOS % 0.6 % (0-4.5); HEMATOCRIT 32.2 % (32.4-45.2); HEMOGLOBIN 10.5 GM/dL (10.7-15.3); LYMPH % 7.9 % (8-40); MCH 27.1 pg (25.7-33.7); MCHC 32.6 g/dl (32.0-36.0); MEAN CELL VOLUME 83.1 fl (80-96); MEAN PLT VOLUME 8.3 fl (7.5-11.1); MONO % 6.5 % (3.8-10.2); NEUT % 84.5 % (42.8-82.8); PLATELET COUNT 441 10^3/uL (134-434); RBC 3.87 M/mm3 (3.60-5.2); RDW 15.3 % (11.6-15.6)
[2023-10-26 09:50] LABS: POTASSIUM 4.1 mmol/L (3.5-5.1)
[2023-10-26 09:52] LABS: CALCIUM 8.5 mg/dL (8.5-10.1)
[2023-10-26 09:53] LABS: ALBUMIN 2.6 g/dl (3.4-5.0); MAGNESIUM 1.9 mg/dL (1.8-2.4)
[2023-10-26 09:56] LABS: CREATININE 0.5 mg/dL (0.55-1.3); PHOSPHOROUS 3.1 mg/dL (2.5-4.9)
[2023-10-26 09:57] LABS: BILIRUBIN,TOTAL 0.5 mg/dL (0.2-1); TOT PROT 6.2 g/dl (6.4-8.2)
[2023-10-26] MEDS: KETOROLAC TROMETHAMINE 30 MG/1 ML VIAL IM SCH (10:16)
[2023-10-26] MEDS: ALPRAZolam 1 MG TABLET PO PRN (13:16)
[2023-10-26] MEDS: ONDANSETRON 4 MG/2 ML VIAL IVPUSH ONE (22:53)
[2023-10-26] MEDS: ACETAMINOPHEN 1000 MG/100 ML BAG IVPB ONE (23:34)
[2023-10-27] MEDS ORDERED: KETOROLAC TROMETHAMINE 30 MG/1 ML VIAL IVPUSH SCH (02:32)
[2023-10-27] MEDS ORDERED: MELATONIN 5 MG TABLETS PO PRN (03:29)
[2023-10-27] MEDS: ACETAMINOPHEN 1000 MG/100 ML BAG IVPB ONE (05:30)
[2023-10-27 11:06] LABS: BASO % 0.2 % (0-2.0); EOS % 0.9 % (0-4.5); HEMATOCRIT 32.5 % (32.4-45.2); HEMOGLOBIN 10.5 GM/dL (10.7-15.3); LYMPH % 5.5 % (8-40); MCH 27.4 pg (25.7-33.7); MCHC 32.4 g/dl (32.0-36.0); MEAN CELL VOLUME 84.5 fl (80-96); MEAN PLT VOLUME 8.2 fl (7.5-11.1); MONO % 6.1 % (3.8-10.2); NEUT % 87.3 % (42.8-82.8); PLATELET COUNT 505 10^3/uL (134-434); RBC 3.85 M/mm3 (3.60-5.2); RDW 15.3 % (11.6-15.6); WHITE BLOOD COUNT 13.5 K/mm3 (4.0-10.0)
[2023-10-27 11:23] LABS: POTASSIUM 3.9 mmol/L (3.5-5.1)
[2023-10-27 11:28] LABS: ALBUMIN 2.6 g/dl (3.4-5.0); BLOOD UREA NITROGEN 5.7 mg/dL (7-18); CALCIUM 8.7 mg/dL (8.5-10.1)
[2023-10-27 11:29] LABS: CREATININE 0.4 mg/dL (0.55-1.3); MAGNESIUM 1.6 mg/dL (1.8-2.4)
[2023-10-27 11:30] LABS: BILIRUBIN,TOTAL 0.5 mg/dL (0.2-1); TOT PROT 6.1 g/dl (6.4-8.2)
[2023-10-27] MEDS: SCOPOLAMINE HYDROBROMIDE 1 PATCH PATCH.TD72 TD SCH (12:22)
[2023-10-27] MEDS: KETOROLAC TROMETHAMINE 30 MG/1 ML VIAL IVPUSH PRN (13:49)
[2023-10-27] MEDS: HYDROmorphone *PCA* 10MG/50ML DISP.SYRIN PCA SCH ×2 (16:48→17:05)
[2023-10-28] MEDS ORDERED: METHYLNALTREXONE BROMIDE 8 MG/0.4 ML SYRINGE SQ SCH (10:00)
[2023-10-28 10:40] LABS: BASO % 0.3 % (0-2.0); EOS % 0.7 % (0-4.5); HEMATOCRIT 31.7 % (32.4-45.2); HEMOGLOBIN 10.1 GM/dL (10.7-15.3); LYMPH % 6.2 % (8-40); MCH 26.8 pg (25.7-33.7); MEAN CELL VOLUME 83.7 fl (80-96); MEAN PLT VOLUME 7.9 fl (7.5-11.1); MONO % 7.6 % (3.8-10.2); NEUT % 85.2 % (42.8-82.8); PLATELET COUNT 519 10^3/uL (134-434); RBC 3.79 M/mm3 (3.60-5.2); RDW 14.9 % (11.6-15.6); WHITE BLOOD COUNT 15.6 K/mm3 (4.0-10.0)
[2023-10-28 10:44] LABS: POTASSIUM 3.9 mmol/L (3.5-5.1)
[2023-10-28] MEDS: FLUTICASONE/SALMETEROL (WIXELA) 100 MCG/50 MCG DISKUS IH SCH (10:45)
[2023-10-28 10:55] LABS: ALBUMIN 2.4 g/dl (3.4-5.0)
[2023-10-28 10:59] LABS: BLOOD UREA NITROGEN 5.4 mg/dL (7-18); MAGNESIUM 1.9 mg/dL (1.8-2.4)
[2023-10-28 11:00] LABS: BILIRUBIN,TOTAL 0.4 mg/dL (0.2-1)
[2023-10-28 11:04] LABS: CREATININE 0.4 mg/dL (0.55-1.3); TOT PROT 5.6 g/dl (6.4-8.2)
[2023-10-28] MEDS: ACETAMINOPHEN 1000 MG/100 ML BAG IVPB PRN (14:56)
[2023-10-28] MEDS: METHYLNALTREXONE BROMIDE 8 MG/0.4 ML SYRINGE SQ SCH (14:56)
[2023-10-29 10:02] LABS: BASO % 0.3 % (0-2.0); EOS % 1.7 % (0-4.5); HEMATOCRIT 30.9 % (32.4-45.2); HEMOGLOBIN 10.1 GM/dL (10.7-15.3); LYMPH % 8.3 % (8-40); MCHC 32.5 g/dl (32.0-36.0); MEAN PLT VOLUME 7.5 fl (7.5-11.1); NEUT % 82.7 % (42.8-82.8); PLATELET COUNT 526 10^3/uL (134-434); RBC 3.72 M/mm3 (3.60-5.2); RDW 15.3 % (11.6-15.6); WHITE BLOOD COUNT 14.1 K/mm3 (4.0-10.0)
[2023-10-29 10:06] LABS: POTASSIUM 4.1 mmol/L (3.5-5.1)
[2023-10-29 10:13] LABS: ALBUMIN 2.4 g/dl (3.4-5.0); BLOOD UREA NITROGEN 5.3 mg/dL (7-18); CALCIUM 8.5 mg/dL (8.5-10.1); MAGNESIUM 1.9 mg/dL (1.8-2.4)
[2023-10-29 10:14] LABS: CREATININE 0.3 mg/dL (0.55-1.3)
[2023-10-29 10:16] LABS: BILIRUBIN,TOTAL 0.4 mg/dL (0.2-1); TOT PROT 5.7 g/dl (6.4-8.2)
[2023-10-29] MEDS: ALPRAZolam 0.25 MG TABLET PO PRN (15:58)
[2023-10-29] MEDS: ACETAMINOPHEN 325 MG TABLET (FP) PO PRN (21:13)
[2023-10-30] MEDS: KETOROLAC TROMETHAMINE 15 MG/ML VIAL IVPUSH ONE (00:29)
[2023-10-30 08:30] LABS: HEMATOCRIT 32.9 % (32.4-45.2); HEMOGLOBIN 10.7 GM/dL (10.7-15.3); MCH 27.3 pg (25.7-33.7); MCHC 32.5 g/dl (32.0-36.0); MEAN CELL VOLUME 84.1 fl (80-96); MEAN PLT VOLUME 7.7 fl (7.5-11.1); PLATELET COUNT 565 10^3/uL (134-434); RBC 3.92 M/mm3 (3.60-5.2); WHITE BLOOD COUNT 23.5 K/mm3 (4.0-10.0)
[2023-10-30 08:44] LABS: POTASSIUM 4.2 mmol/L (3.5-5.1)
[2023-10-30 08:48] LABS: ALBUMIN 2.3 g/dl (3.4-5.0); CALCIUM 8.8 mg/dL (8.5-10.1)
[2023-10-30 08:50] LABS: BLOOD UREA NITROGEN 5.7 mg/dL (7-18); MAGNESIUM 1.7 mg/dL (1.8-2.4)
[2023-10-30 08:52] LABS: CREATININE 0.3 mg/dL (0.55-1.3)
[2023-10-30 08:54] LABS: BILIRUBIN,TOTAL 0.6 mg/dL (0.2-1); TOT PROT 5.6 g/dl (6.4-8.2)
[2023-10-30] MEDS: PANTOPRAZOLE SODIUM 40 MG VIAL IVPUSH SCH (09:14)
[2023-10-30] MEDS: SUCRALFATE 1 GM/10 ML UNIT DOSE CUPS PO SCH (09:15)
[2023-10-30 10:48] LABS: ANISOCYTOSIS 2+; MACROCYTOSIS 0
[2023-10-30] MEDS: MAG HYDROX/AL HYDROX/SIMETH 30 ML UNIT-DOSE CUP PO PRN (15:22)
[2023-10-30] MEDS: AZTREONAM 2 GM in DEXTROSE 5%-WATER 100 ML IVPB SCH (21:43)
[2023-10-30] MEDS: VANCOMYCIN/WATER FOR INJ (PEG) 1 GM/200 ML BAG IVPB SCH (23:38)
[2023-10-31 10:48] LABS: HEMATOCRIT 33.3 % (32.4-45.2); HEMOGLOBIN 10.8 GM/dL (10.7-15.3); MCH 27.2 pg (25.7-33.7); MCHC 32.4 g/dl (32.0-36.0); MEAN PLT VOLUME 7.6 fl (7.5-11.1); PLATELET COUNT 642 10^3/uL (134-434); RBC 3.96 M/mm3 (3.60-5.2); RDW 15.3 % (11.6-15.6); WHITE BLOOD COUNT 20.3 K/mm3 (4.0-10.0)
[2023-10-31 11:02] LABS: POTASSIUM 3.8 mmol/L (3.5-5.1)
[2023-10-31 11:07] LABS: ALBUMIN 2.4 g/dl (3.4-5.0); BLOOD UREA NITROGEN 7.7 mg/dL (7-18); CALCIUM 9.2 mg/dL (8.5-10.1)
[2023-10-31 11:10] LABS: CREATININE 0.3 mg/dL (0.55-1.3)
[2023-10-31 11:12] LABS: BILIRUBIN,TOTAL 0.6 mg/dL (0.2-1); TOT PROT 6.3 g/dl (6.4-8.2)
[2023-10-31 11:38] LABS: ANISOCYTOSIS 0; MACROCYTOSIS 0
[2023-10-31] MEDS ORDERED: MIDAZOLAM HCL 2 MG/2 ML SINGLE DOSE VIAL ONE (11:53)
[2023-10-31] MEDS ORDERED: FENTANYL CITRATE/PF 50 MCG/ML VIAL ONE (11:53)
[2023-10-31] MEDS: MIDAZOLAM HCL 2 MG/2 ML SINGLE DOSE VIAL IVPUSH ONE ×2 (12:20→12:30)
[2023-10-31] MEDS: FENTANYL CITRATE/PF 50 MCG/ML VIAL IVPUSH ONE ×2 (12:20→12:30)
[2023-10-31] MEDS: KETOROLAC TROMETHAMINE 15 MG/ML VIAL IVPUSH ONE (22:40)
[2023-11-01] MEDS: LACTATED RINGERS SOLUTION 1,000 ML/1,000 ML INFUS.BAG IV SCH (09:04)
[2023-11-01 10:41] LABS: BASO % 0.2 % (0-2.0); HEMATOCRIT 34.1 % (32.4-45.2); HEMOGLOBIN 11.3 GM/dL (10.7-15.3); LYMPH % 5.9 % (8-40); MCH 27.7 pg (25.7-33.7); MEAN CELL VOLUME 83.7 fl (80-96); MEAN PLT VOLUME 7.5 fl (7.5-11.1); NEUT % 86.9 % (42.8-82.8); PLATELET COUNT 701 10^3/uL (134-434); RBC 4.07 M/mm3 (3.60-5.2); RDW 14.8 % (11.6-15.6); WHITE BLOOD COUNT 15.4 K/mm3 (4.0-10.0)
[2023-11-01 11:04] LABS: POTASSIUM 3.9 mmol/L (3.5-5.1)
[2023-11-01 11:05] LABS: CALCIUM 8.6 mg/dL (8.5-10.1)
[2023-11-01 11:07] LABS: ALBUMIN 2.3 g/dl (3.4-5.0); BLOOD UREA NITROGEN 12.3 mg/dL (7-18); MAGNESIUM 2.4 mg/dL (1.8-2.4)
[2023-11-01 11:09] LABS: CREATININE 0.3 mg/dL (0.55-1.3)
[2023-11-01 11:10] LABS: BILIRUBIN,TOTAL 0.5 mg/dL (0.2-1)
[2023-11-01 11:12] LABS: TOT PROT 6.4 g/dl (6.4-8.2)
[2023-11-01] MEDS: TRIMETHOBENZAMIDE HCL 200MG/2ML INJ IM ONE (12:41)
[2023-11-01] MEDS: KETOROLAC TROMETHAMINE 15 MG/ML VIAL IVPUSH PRN (15:32)
[2023-11-02] MEDS: TRIMETHOBENZAMIDE HCL 200MG/2ML INJ IM PRN (09:18)
[2023-11-02 09:55] LABS: BASO % 0.2 % (0-2.0); EOS % 1.2 % (0-4.5); HEMATOCRIT 32.9 % (32.4-45.2); HEMOGLOBIN 11.1 GM/dL (10.7-15.3); MCH 27.5 pg (25.7-33.7); MCHC 33.7 g/dl (32.0-36.0); MEAN CELL VOLUME 81.6 fl (80-96); MEAN PLT VOLUME 7.4 fl (7.5-11.1); MONO % 7.2 % (3.8-10.2); NEUT % 84.4 % (42.8-82.8); PLATELET COUNT 789 10^3/uL (134-434); RBC 4.03 M/mm3 (3.60-5.2); RDW 15.1 % (11.6-15.6); WHITE BLOOD COUNT 14.4 K/mm3 (4.0-10.0)
[2023-11-02 10:08] LABS: POTASSIUM 3.4 mmol/L (3.5-5.1)
[2023-11-02 10:10] LABS: CALCIUM 8.3 mg/dL (8.5-10.1)
[2023-11-02 10:13] LABS: CREATININE 0.3 mg/dL (0.55-1.3)
[2023-11-02 10:42] LABS: POTASSIUM 3.4 mmol/L (3.5-5.1)
[2023-11-02 10:45] LABS: ALBUMIN 2.3 g/dl (3.4-5.0); BLOOD UREA NITROGEN 12.2 mg/dL (7-18); CALCIUM 8.5 mg/dL (8.5-10.1); MAGNESIUM 2.2 mg/dL (1.8-2.4)
[2023-11-02 10:48] LABS: CREATININE 0.3 mg/dL (0.55-1.3)
[2023-11-02 10:50] LABS: BILIRUBIN,TOTAL 0.4 mg/dL (0.2-1); TOT PROT 6.1 g/dl (6.4-8.2)
[2023-11-02] MEDS: AMINO ACIDS 4.25%/D5W 1,000 ML IV SCH (11:13)
[2023-11-02] MEDS: PSYLLIUM 5.85 GM PACKET PO SCH (15:02)
[2023-11-02] MEDS: POTASSIUM CHLORIDE TABS 20 MEQ TABLET.ER (FP) PO ONE (16:37)
[2023-11-02] MEDS: oxyCODONE HCL 5 MG TABLET PO PRN (22:38)
[2023-11-03] MEDS: AMINO ACIDS 4.25%/D5W 2,000 ML IV SCH ×2 (01:15→10:00)
[2023-11-03] MEDS ORDERED: LIDOCAINE HCL/PF 2% SDV 5ML VIAL ONE (07:25)
[2023-11-03] MEDS ORDERED: PROPOFOL 20 ML ONE (07:26)
[2023-11-03] MEDS ORDERED: MIDAZOLAM HCL 2 MG/2 ML SINGLE DOSE VIAL ONE (07:26)
[2023-11-03] MEDS ORDERED: ONDANSETRON 4 MG/2 ML VIAL ONE (08:12)
[2023-11-03] MEDS ORDERED: DEXAMETHASONE SOD PHOSPHATE 4 MG/1 ML VIAL ONE (08:12)
[2023-11-03] MEDS ORDERED: KETOROLAC TROMETHAMINE 30 MG/1 ML VIAL ONE (08:12)
[2023-11-03] MEDS ORDERED: ONDANSETRON 4 MG/2 ML VIAL IVPUSH PRN ×3 (08:31→10:51)
[2023-11-03] MEDS ORDERED: LACTATED RINGERS SOLUTION 1,000 ML IV SCH ×2 (08:45→11:00)
[2023-11-03] MEDS: ACETAMINOPHEN INJECTION 100 ML IVPB ONE (08:50)
[2023-11-03] MEDS: ACETAMINOPHEN 1000 MG/100 ML BAG IVPB ONE ×2 (08:50→11:05)
[2023-11-03] MEDS ORDERED: ALBUTEROL SO4 HFA INHALER IH PRN (09:15)
[2023-11-03] MEDS ORDERED: TRIMETHOBENZAMIDE HCL 200MG/2ML INJ IM PRN (09:15)
[2023-11-03 09:30] LABS: BASO % 0.4 % (0-2.0); EOS % 1.2 % (0-4.5); HEMATOCRIT 31.5 % (32.4-45.2); HEMOGLOBIN 10.8 GM/dL (10.7-15.3); LYMPH % 6.6 % (8-40); MCH 27.6 pg (25.7-33.7); MCHC 34.2 g/dl (32.0-36.0); MEAN CELL VOLUME 80.6 fl (80-96); MEAN PLT VOLUME 6.9 fl (7.5-11.1); NEUT % 86.8 % (42.8-82.8); PLATELET COUNT 733 10^3/uL (134-434); RDW 14.6 % (11.6-15.6); WHITE BLOOD COUNT 11.4 K/mm3 (4.0-10.0)
[2023-11-03] MEDS: SODIUM CHLORIDE 0.9%/KCL 20 MEQ/1,000 ML INFUS.BAG IV SCH (09:37)
[2023-11-03] MEDS: AZTREONAM 2 GM in DEXTROSE 5%-WATER 100 ML IVPB SCH (09:42)
[2023-11-03 09:43] LABS: POTASSIUM 3.2 mmol/L (3.5-5.1)
[2023-11-03] MEDS: ENOXAPARIN NA (PORCINE) 40 MG/0.4 ML DISP.SYRIN SQ SCH (09:43)
[2023-11-03] MEDS: PANTOPRAZOLE SODIUM 40 MG VIAL IVPUSH SCH (09:43)
[2023-11-03 10:04] LABS: ALBUMIN 2.3 g/dl (3.4-5.0); CALCIUM 8.6 mg/dL (8.5-10.1)
[2023-11-03 10:05] LABS: BLOOD UREA NITROGEN 13.1 mg/dL (7-18); MAGNESIUM 2.1 mg/dL (1.8-2.4)
[2023-11-03 10:09] LABS: PHOSPHOROUS 3.4 mg/dL (2.5-4.9)
[2023-11-03 10:11] LABS: BILIRUBIN,TOTAL 0.3 mg/dL (0.2-1); CREATININE 0.3 mg/dL (0.55-1.3); TOT PROT 5.8 g/dl (6.4-8.2)
[2023-11-03] MEDS: ACETAMINOPHEN 325 MG TABLET (FP) PO SCH ×2 (10:28→13:45)
[2023-11-03] MEDS: FLUTICASONE/SALMETEROL (WIXELA) 100 MCG/50 MCG DISKUS IH SCH (10:39)
[2023-11-03] MEDS: KCL 10 MEQ IVPB 10 MEQ/100 ML INFUS.BAG IVPB SCH (11:40)
[2023-11-03] MEDS: PSYLLIUM 5.85 GM PACKET PO SCH (13:17)
[2023-11-03] MEDS: oxyCODONE HCL 5 MG TABLET PO SCH (13:17)
[2023-11-03] MEDS: KETOROLAC TROMETHAMINE 15 MG/ML VIAL IVPUSH PRN (13:23)
[2023-11-03] MEDS: SUCRALFATE 1 GM/10 ML UNIT DOSE CUPS PO SCH (17:17)
[2023-11-04] MEDS ORDERED: oxyCODONE HCL 5 MG TABLET PO PRN (07:38)
[2023-11-04] MEDS ORDERED: ONDANSETRON *ODT* 4 MG TABLET SL PRN (09:09)
[2023-11-04] MEDS: ONDANSETRON 4 MG/2 ML VIAL IVPUSH PRN (09:24)
[2023-11-04 09:26] LABS: BASO % 0.4 % (0-2.0); EOS % 1.3 % (0-4.5); HEMATOCRIT 33.5 % (32.4-45.2); HEMOGLOBIN 11.1 GM/dL (10.7-15.3); LYMPH % 12.8 % (8-40); MCHC 33.1 g/dl (32.0-36.0); MEAN CELL VOLUME 81.4 fl (80-96); MEAN PLT VOLUME 7.3 fl (7.5-11.1); MONO % 8.6 % (3.8-10.2); NEUT % 76.9 % (42.8-82.8); PLATELET COUNT 809 10^3/uL (134-434); RBC 4.12 M/mm3 (3.60-5.2); WHITE BLOOD COUNT 13.5 K/mm3 (4.0-10.0)
[2023-11-04 09:49] LABS: POTASSIUM 3.7 mmol/L (3.5-5.1)
[2023-11-04 09:53] LABS: CALCIUM 8.8 mg/dL (8.5-10.1); MAGNESIUM 1.7 mg/dL (1.8-2.4)
[2023-11-04 09:54] LABS: ALBUMIN 2.5 g/dl (3.4-5.0); BLOOD UREA NITROGEN 11.2 mg/dL (7-18)
[2023-11-04 09:56] LABS: CREATININE 0.4 mg/dL (0.55-1.3)
[2023-11-04 09:58] LABS: BILIRUBIN,TOTAL 0.2 mg/dL (0.2-1)
[2023-11-04] MEDS ORDERED: oxyCODONE HCL 10 MG SUSTAINED ACTING TABLET PO SCH (10:00)
[2023-11-04] MEDS: ACETAMINOPHEN 500 MG TABLET (FP) PO SCH (11:04)
[2023-11-04] MEDS: oxyCODONE HCL 5 MG TABLET PO SCH (12:47)
[2023-11-04] MEDS: MAGNESIUM OXIDE 400 MG TABLET (FP) PO ONE (12:51)
[2023-11-04] MEDS: MELATONIN 5 MG TABLETS PO PRN (22:46)
[2023-11-05 08:55] LABS: BASO % 0.6 % (0-2.0); EOS % 2.3 % (0-4.5); HEMATOCRIT 36.1 % (32.4-45.2); LYMPH % 14.2 % (8-40); MCH 27.2 pg (25.7-33.7); MCHC 33.2 g/dl (32.0-36.0); MEAN CELL VOLUME 81.9 fl (80-96); MEAN PLT VOLUME 7.5 fl (7.5-11.1); MONO % 9.9 % (3.8-10.2); PLATELET COUNT 932 10^3/uL (134-434); RDW 15.2 % (11.6-15.6)
[2023-11-05 09:10] LABS: POTASSIUM 4.2 mmol/L (3.5-5.1)
[2023-11-05 09:13] LABS: CALCIUM 9.2 mg/dL (8.5-10.1)
[2023-11-05 09:14] LABS: ALBUMIN 2.7 g/dl (3.4-5.0); BLOOD UREA NITROGEN 13.9 mg/dL (7-18)
[2023-11-05 09:17] LABS: CREATININE 0.5 mg/dL (0.55-1.3); PHOSPHOROUS 3.6 mg/dL (2.5-4.9)
[2023-11-05 09:18] LABS: TOT PROT 6.8 g/dl (6.4-8.2)
[2023-11-05 09:19] LABS: BILIRUBIN,TOTAL 0.3 mg/dL (0.2-1)
[2023-11-05] MEDS: SCOPOLAMINE HYDROBROMIDE 1 PATCH PATCH.TD72 TD SCH (10:28)
[2023-11-05] MEDS: oxyCODONE HCL 5 MG TABLET PO ONE (10:29)
[2023-11-05] MEDS: AMINO ACIDS/PROTEIN HYDROLYS 30 ML LIQUID.PKT PO SCH (18:20)
[2023-11-06 09:35] LABS: BASO % 0.6 % (0-2.0); EOS % 2.7 % (0-4.5); HEMATOCRIT 36.1 % (32.4-45.2); HEMOGLOBIN 11.7 GM/dL (10.7-15.3); LYMPH % 15.8 % (8-40); MCH 26.6 pg (25.7-33.7); MCHC 32.4 g/dl (32.0-36.0); MEAN CELL VOLUME 82.3 fl (80-96); MEAN PLT VOLUME 7.7 fl (7.5-11.1); MONO % 11.8 % (3.8-10.2); NEUT % 69.1 % (42.8-82.8); PLATELET COUNT 848 10^3/uL (134-434); RBC 4.39 M/mm3 (3.60-5.2); WHITE BLOOD COUNT 12.7 K/mm3 (4.0-10.0)
[2023-11-06 09:44] LABS: POTASSIUM 4.4 mmol/L (3.5-5.1)
[2023-11-06 09:51] LABS: BLOOD UREA NITROGEN 7.7 mg/dL (7-18); CALCIUM 9.5 mg/dL (8.5-10.1); MAGNESIUM 1.5 mg/dL (1.8-2.4)
[2023-11-06 09:55] LABS: CREATININE 0.5 mg/dL (0.55-1.3); PHOSPHOROUS 4.2 mg/dL (2.5-4.9)
[2023-11-06 09:56] LABS: BILIRUBIN,TOTAL 0.3 mg/dL (0.2-1); TOT PROT 6.9 g/dl (6.4-8.2)
[2023-11-06] MEDS: MAGNESIUM 2GM/50ML STERILE WATER IVPB IVPB ONE (10:20)
[2023-11-06] MEDS: MULTIVITAMINS (DAILY MVI) TABLET (FP) PO SCH (10:20)
[2023-11-06] MEDS: SODIUM CHLORIDE 1,000 ML IV SCH (17:54)
[2023-11-07] MEDS: ONDANSETRON 4 MG/2 ML VIAL IVPUSH ONE (04:52)
[2023-11-07 07:49] VITALS: TEMP 98.2
[2023-11-07 08:55] LABS: BASO % 0.4 % (0-2.0); EOS % 1.1 % (0-4.5); HEMATOCRIT 34.3 % (32.4-45.2); HEMOGLOBIN 11.1 GM/dL (10.7-15.3); LYMPH % 7.7 % (8-40); MCH 26.5 pg (25.7-33.7); MCHC 32.4 g/dl (32.0-36.0); MEAN CELL VOLUME 81.9 fl (80-96); MEAN PLT VOLUME 7.6 fl (7.5-11.1); MONO % 8.6 % (3.8-10.2); NEUT % 82.2 % (42.8-82.8); PLATELET COUNT 776 10^3/uL (134-434); RBC 4.18 M/mm3 (3.60-5.2); RDW 15.3 % (11.6-15.6); WHITE BLOOD COUNT 15.8 K/mm3 (4.0-10.0)
[2023-11-07 09:50] LABS: POTASSIUM 4.4 mmol/L (3.5-5.1)
[2023-11-07 09:56] LABS: CALCIUM 8.9 mg/dL (8.5-10.1)
[2023-11-07 09:57] LABS: ALBUMIN 2.8 g/dl (3.4-5.0); BLOOD UREA NITROGEN 8.8 mg/dL (7-18); MAGNESIUM 1.9 mg/dL (1.8-2.4)
[2023-11-07 10:00] LABS: BILIRUBIN,TOTAL 0.2 mg/dL (0.2-1); PHOSPHOROUS 4.8 mg/dL (2.5-4.9); TOT PROT 6.4 g/dl (6.4-8.2)
[2023-11-07 10:01] LABS: CREATININE 0.5 mg/dL (0.55-1.3)
[2023-11-07] MEDS: MAG HYDROX/AL HYDROX/SIMETH 30 ML UNIT-DOSE CUP PO PRN (20:20)
[2023-11-07] MEDS: oxyCODONE HCL 5 MG TABLET PO ONE (21:45)
[2023-11-08 10:18] LABS: BASO % 0.4 % (0-2.0); EOS % 3.9 % (0-4.5); HEMATOCRIT 31.6 % (32.4-45.2); HEMOGLOBIN 10.5 GM/dL (10.7-15.3); LYMPH % 15.9 % (8-40); MCH 27.7 pg (25.7-33.7); MCHC 33.3 g/dl (32.0-36.0); MEAN CELL VOLUME 83.4 fl (80-96); MONO % 11.4 % (3.8-10.2); NEUT % 68.4 % (42.8-82.8); PLATELET COUNT 650 10^3/uL (134-434); RBC 3.79 M/mm3 (3.60-5.2); RDW 15.5 % (11.6-15.6); WHITE BLOOD COUNT 10.7 K/mm3 (4.0-10.0)
[2023-11-08 10:30] LABS: CALCIUM 8.2 mg/dL (8.5-10.1)
[2023-11-08 10:31] LABS: BLOOD UREA NITROGEN 9.2 mg/dL (7-18)
[2023-11-08 10:34] LABS: CREATININE 0.4 mg/dL (0.55-1.3)
[2023-11-08 15:13] VITALS: BP 121/70; PULSE 99; RESP 20
[2023-11-09] MEDS ORDERED: levoFLOXacin 750 MG TABLET PO SCH (06:00)
[2023-11-09] MEDS ORDERED: metroNIDAZOLE 250 MG TABLET PO SCH (10:00)
[2023-11-09] MEDS ORDERED: PANTOPRAZOLE 40 MG TABLET PO SCH (10:00)
== END 2023-11-08 16:45 | disposition home health service (06) | DRG 221 ==
LOC: J2C 04:43 → J8W 20:12
PROVIDERS: ADMIT Surgery; ATTEND Nurse Practitioner Acute Care
PROC: 0DNN4ZZ Release Sigmoid Colon, Percutaneous Endoscopic Approach (ICD-10-PCS; 2023-10-24)
PROC: 0T788DZ Dilation of Bilateral Ureters with Intraluminal Device, Via Natural or Artificial Opening Endoscopic (ICD-10-PCS; 2023-10-24)
PROC: 0DTN0ZZ Resection of Sigmoid Colon, Open Approach (ICD-10-PCS; principal; 2023-10-24 08:00)
PROC: 0DTP0ZZ Resection of Rectum, Open Approach (ICD-10-PCS; 2023-10-24 08:00)
PROC: 0W9G30Z Drainage of Peritoneal Cavity with Drainage Device, Percutaneous Approach (ICD-10-PCS; 2023-10-31)
PROC: 0D1B0Z4 Bypass Ileum to Cutaneous, Open Approach (ICD-10-PCS; 2023-11-03)
PROC: 0DJD8ZZ Inspection of Lower Intestinal Tract, Via Natural or Artificial Opening Endoscopic (ICD-10-PCS; 2023-11-03)
DX: K57.20 Diverticulitis of large intestine with perforation and abscess without bleeding (principal); N73.0 Acute parametritis and pelvic cellulitis; K56.7 Ileus, unspecified; M35.89 Other specified systemic involvement of connective tissue; K66.0 Peritoneal adhesions (postprocedural) (postinfection); J45.909 Unspecified asthma, uncomplicated; Y83.9 Surgical procedure, unspecified as the cause of abnormal reaction of the patient, or of later complication, without mention of misadventure at the time of the procedure; K91.89 Other postprocedural complications and disorders of digestive system; T81.32XA Disruption of internal operation (surgical) wound, not elsewhere classified, initial encounter; T81.49XA Infection following a procedure, other surgical site, initial encounter; Z53.31 Laparoscopic surgical procedure converted to open procedure
CPT/HCPCS: 10030; 36415; 74018-TC-FY; 74019-TC-FY; 74177-TC; 80048; 80053; 81025; 83735; 84100; 85025; 86140; 86850; 86900; 86901; 87040; 87070; 87075; 87102; 87116; 87205; 87206; 87210; 88108; 88305-TC; 88307-TC; 88329; 94010; 94760; 97116-GP; 97161-GP; G0463; J0131; J1644; Q9967

== ENCOUNTER 2023-12-06 12:28 | Emergency (ER) | payer OTHER ==
[2023-12-06 12:46] VITALS: RESP 20; BMI 19.7
[2023-12-06] MEDS ORDERED: ACETAMINOPHEN INJECTION 100 ML IVPB ONE (13:21)
[2023-12-06 13:48] LABS: BASO % 0.7 % (0-2.0); EOS % 0.9 % (0-4.5); HEMATOCRIT 38.8 % (32.4-45.2); HEMOGLOBIN 13.5 GM/dL (10.7-15.3); LYMPH % 16.5 % (8-40); MCH 28.7 pg (25.7-33.7); MCHC 34.7 g/dl (32.0-36.0); MEAN CELL VOLUME 82.9 fl (80-96); MEAN PLT VOLUME 7.6 fl (7.5-11.1); NEUT % 74.9 % (42.8-82.8); PLATELET COUNT 595 10^3/uL (134-434); RBC 4.69 M/mm3 (3.60-5.2); RDW 14.5 % (11.6-15.6); WHITE BLOOD COUNT 10.1 K/mm3 (4.0-10.0)
[2023-12-06] MEDS: ACETAMINOPHEN 1000 MG/100 ML BAG IVPB ONE (13:48)
[2023-12-06 13:50] LABS: EPI CELLS 5 /uL (0-25.1); HYALINE CASTS 0 /uL (0-3.1); URINE APPEARANCE CLEAR; URINE BACTERIA 185 /uL (0-1359); URINE BILIRUBIN NEGATIVE (NEGATIVE); URINE COLOR YELLOW; URINE GLUCOSE (UA) NEGATIVE (NEGATIVE); URINE KETONE NEGATIVE (NEGATIVE); URINE LEUK ESTERASE 2+ (NEGATIVE); URINE NITRITE NEGATIVE (NEGATIVE); URINE PROTEIN NEGATIVE (NEGATIVE); URINE RBC 17 /uL (0-23.9); URINE UROBILINOGEN 0.2 mg/dL (0.2-1.0); URINE WBC 163 /uL (0-25.8)
[2023-12-06 13:55] LABS: INR 1.13 (0.83-1.09); PROTHROMBIN TIME (PATIENT) 13.1 SEC (9.7-13.0)
[2023-12-06 14:25] LABS: POTASSIUM 5.1 mmol/L (3.5-5.1)
[2023-12-06 14:27] LABS: CALCIUM 9.8 mg/dL (8.5-10.1)
[2023-12-06 14:28] LABS: ALBUMIN 3.6 g/dl (3.4-5.0); BLOOD UREA NITROGEN 5.4 mg/dL (7-18); MAGNESIUM 2.2 mg/dL (1.8-2.4)
[2023-12-06 14:31] LABS: CREATININE 0.5 mg/dL (0.55-1.3)
[2023-12-06 14:32] LABS: BILIRUBIN,TOTAL 0.5 mg/dL (0.2-1); TOT PROT 8.2 g/dl (6.4-8.2)
[2023-12-06] MEDS ORDERED: traMADol HCL 50 MG TABLET ONE (18:35)
[2023-12-06] MEDS: traMADol HCL 50 MG TABLET PO ONE (18:36)
[2023-12-06] MEDS ORDERED: CEPHALEXIN MONOHYDRATE 500 MG CAPSULE (UD) ONE (18:57)
[2023-12-06] MEDS: CEPHALEXIN MONOHYDRATE 500 MG CAPSULE (UD) PO ONE (19:04)
[2023-12-06 19:09] VITALS: BP 123/81; PULSE 86; TEMP 98.2
== END 2023-12-06 19:09 | disposition home or self-care (01) ==
LOC: JER 12:28
PROC: 3E033NZ Introduction of Analgesics, Hypnotics, Sedatives into Peripheral Vein, Percutaneous Approach (ICD-10-PCS; principal; 2023-12-06)
DX: M54.50 Low back pain, unspecified (principal); R30.0 Dysuria; R10.84 Generalized abdominal pain; R11.0 Nausea; R50.9 Fever, unspecified; K91.83 Postprocedural hepatorenal syndrome; G89.18 Other acute postprocedural pain; N39.0 Urinary tract infection, site not specified; R31.9 Hematuria, unspecified; Z20.822 Contact with and (suspected) exposure to COVID-19
CPT/HCPCS: 0241U-QW; 36415; 74178-TC; 80053; 81003; 83605; 83690; 83735; 84703; 85025; 85610; 85730; 86850; 86900; 86901; 87086; 93005; 93010; 99285-25; J0131; Q9967

== ENCOUNTER 2024-01-12 11:11 | Inpatient (IN) | payer OTHER ==
[2024-01-12] MEDS ORDERED: ONDANSETRON 4 MG/2 ML VIAL ONE (13:16)
[2024-01-12 13:47] LABS: BASO % 0.8 % (0-2.0); EOS % 0.6 % (0-4.5); HEMATOCRIT 39.4 % (32.4-45.2); HEMOGLOBIN 13.2 GM/dL (10.7-15.3); LYMPH % 12.3 % (8-40); MCH 27.8 pg (25.7-33.7); MCHC 33.4 g/dl (32.0-36.0); MEAN CELL VOLUME 83.2 fl (80-96); MEAN PLT VOLUME 7.9 fl (7.5-11.1); MONO % 7.3 % (3.8-10.2); PLATELET COUNT 442 10^3/uL (134-434); RBC 4.73 M/mm3 (3.60-5.2); RDW 14.4 % (11.6-15.6); WHITE BLOOD COUNT 12.5 K/mm3 (4.0-10.0)
[2024-01-12 13:48] LABS: PH,URINE 5.5 (5.0-8.0); URINE APPEARANCE CLOUDY; URINE BILIRUBIN NEGATIVE (NEGATIVE); URINE COLOR YELLOW; URINE GLUCOSE (UA) NEGATIVE (NEGATIVE); URINE KETONE NEGATIVE (NEGATIVE); URINE LEUK ESTERASE NEGATIVE (NEGATIVE); URINE NITRITE NEGATIVE (NEGATIVE); URINE PROTEIN NEGATIVE (NEGATIVE); URINE UROBILINOGEN 0.2 mg/dL (0.2-1.0)
[2024-01-12 13:59] LABS: EPI CELLS >36 /uL (0-25.1); HYALINE CASTS 8 /uL (0-3.1); URINE BACTERIA 3307 /uL (0-1359); URINE RBC 12 /uL (0-23.9); URINE WBC 23 /uL (0-25.8)
[2024-01-12 14:00] LABS: INR 1.1 (0.83-1.09); PROTHROMBIN TIME (PATIENT) 12.8 SEC (9.7-13.0)
[2024-01-12] MEDS: ONDANSETRON 4 MG/2 ML VIAL IVPUSH ONE (14:00)
[2024-01-12] MEDS: morphine CARPU-JECT 2 MG/1 ML DISP.SYRIN IVPUSH ONE ×2 (14:00→16:07)
[2024-01-12] MEDS: SODIUM CHLORIDE 0.9% 500 ML INFUS.BAG IV ONE (14:00)
[2024-01-12 14:03] LABS: ACTIVATED PTT 30.1 SECONDS (25.2-36.5); HCG,QUALITATIVE URINE Negative
[2024-01-12 14:09] LABS: POTASSIUM 4.6 mmol/L (3.5-5.1)
[2024-01-12 14:11] LABS: CALCIUM 9.1 mg/dL (8.5-10.1)
[2024-01-12 14:12] LABS: ALBUMIN 3.3 g/dl (3.4-5.0); BLOOD UREA NITROGEN 7.2 mg/dL (7-18)
[2024-01-12 14:15] LABS: CREATININE 0.5 mg/dL (0.55-1.3)
[2024-01-12 14:16] LABS: BILIRUBIN,TOTAL 0.6 mg/dL (0.2-1); TOT PROT 7.5 g/dl (6.4-8.2)
[2024-01-12 22:01] VITALS: BMI 21.5
[2024-01-12] MEDS: KETOROLAC TROMETHAMINE 15 MG/ML VIAL IVPUSH STA (22:08)
[2024-01-12] MEDS: KETOROLAC TROMETHAMINE 15 MG/ML VIAL IVPUSH ONE (22:15)
[2024-01-12] MEDS ORDERED: ACETAMINOPHEN 1000 MG/100 ML BAG IVPB PRN (22:41)
[2024-01-12] MEDS: SODIUM CHLORIDE 1,000 ML IV SCH (22:42)
[2024-01-13] MEDS: KETOROLAC TROMETHAMINE 15 MG/ML VIAL IVPUSH PRN (03:40)
[2024-01-13] MEDS ORDERED: ALBUTEROL SO4 HFA INHALER IH PRN (03:44)
[2024-01-13] MEDS: HEPARIN NA (PORCINE) 5,000 UNITS/ML 1ML VIAL SQ SCH (06:17)
[2024-01-13] MEDS: ACETAMINOPHEN WITH CODEINE 300MG/30MG TABLET PO PRN (09:37)
[2024-01-13 09:52] LABS: BASO % 0.3 % (0-2.0); EOS % 1.4 % (0-4.5); HEMATOCRIT 35.3 % (32.4-45.2); LYMPH % 11.9 % (8-40); MCH 28.1 pg (25.7-33.7); MCHC 33.9 g/dl (32.0-36.0); MEAN CELL VOLUME 82.9 fl (80-96); MEAN PLT VOLUME 7.8 fl (7.5-11.1); MONO % 8.1 % (3.8-10.2); NEUT % 78.3 % (42.8-82.8); PLATELET COUNT 399 10^3/uL (134-434); RBC 4.25 M/mm3 (3.60-5.2); RDW 14.5 % (11.6-15.6); WHITE BLOOD COUNT 8.8 K/mm3 (4.0-10.0)
[2024-01-13 10:11] LABS: POTASSIUM 3.8 mmol/L (3.5-5.1)
[2024-01-13 10:14] LABS: ALBUMIN 2.9 g/dl (3.4-5.0); MAGNESIUM 2.1 mg/dL (1.8-2.4)
[2024-01-13 10:17] LABS: CREATININE 0.5 mg/dL (0.55-1.3); PHOSPHOROUS 3.6 mg/dL (2.5-4.9)
[2024-01-13 10:19] LABS: TOT PROT 6.5 g/dl (6.4-8.2)
[2024-01-13 10:20] LABS: BILIRUBIN,TOTAL 0.9 mg/dL (0.2-1)
[2024-01-13 12:05] VITALS: RESP 18
[2024-01-13] MEDS: FLUTICASONE/SALMETEROL (WIXELA) 100 MCG/50 MCG DISKUS IH SCH (12:08)
[2024-01-13] MEDS: PANTOPRAZOLE 40 MG TABLET PO SCH (14:41)
[2024-01-13] MEDS: PSYLLIUM 5.85 GM PACKET PO SCH (17:45)
[2024-01-13] MEDS: SUCRALFATE 1 GM/10 ML UNIT DOSE CUPS PO SCH (18:21)
[2024-01-13] MEDS: HYDROCORTISONE ACETATE 25 MG/SUPP.RECT RC SCH (21:38)
[2024-01-14 09:17] LABS: HEMATOCRIT 31.5 % (32.4-45.2); HEMOGLOBIN 10.5 GM/dL (10.7-15.3); MCH 27.8 pg (25.7-33.7); MCHC 33.4 g/dl (32.0-36.0); MEAN CELL VOLUME 83.2 fl (80-96); PLATELET COUNT 371 10^3/uL (134-434); RBC 3.79 M/mm3 (3.60-5.2); RDW 14.1 % (11.6-15.6); WHITE BLOOD COUNT 6.9 K/mm3 (4.0-10.0)
[2024-01-14 09:22] LABS: POTASSIUM 3.7 mmol/L (3.5-5.1)
[2024-01-14 09:30] LABS: ALBUMIN 2.7 g/dl (3.4-5.0); BLOOD UREA NITROGEN 7.2 mg/dL (7-18); CALCIUM 8.6 mg/dL (8.5-10.1)
[2024-01-14 09:33] LABS: CREATININE 0.5 mg/dL (0.55-1.3)
[2024-01-14 09:35] LABS: BILIRUBIN,TOTAL 0.4 mg/dL (0.2-1); TOT PROT 5.8 g/dl (6.4-8.2)
[2024-01-14] MEDS: metroNIDAZOLE 250 MG TABLET PO ONE (12:52)
[2024-01-14] MEDS: levoFLOXacin 500 MG, levoFLOXacin 250 MG PO ONE (12:52)
[2024-01-14 13:54] VITALS: BP 121/63; PULSE 83; TEMP 98.7
== END 2024-01-14 17:55 | disposition home or self-care (01) | DRG 252 ==
LOC: JER 11:11 → JERBED 18:06 → J5S 20:16
PROVIDERS: ADMIT Student in an Organized Health Care Education/Training Program
DX: K91.89 Other postprocedural complications and disorders of digestive system (principal); K63.0 Abscess of intestine; T81.89XA Other complications of procedures, not elsewhere classified, initial encounter; J45.909 Unspecified asthma, uncomplicated; K57.92 Diverticulitis of intestine, part unspecified, without perforation or abscess without bleeding; N94.89 Other specified conditions associated with female genital organs and menstrual cycle; Z93.3 Colostomy status; Y83.9 Surgical procedure, unspecified as the cause of abnormal reaction of the patient, or of later complication, without mention of misadventure at the time of the procedure
CPT/HCPCS: 36415; 74176-TC; 74177-TC; 76830-TC; 80053; 81003; 83690; 83735; 84100; 84703; 85025; 85027; 85610; 85730; 86850; 86900; 86901; 87086; 93005; 93010; 99285-25; J1644; Q9967

== ENCOUNTER 2024-02-13 13:00 | Inpatient (IN) | payer OTHER ==
[2024-02-09 15:58] VITALS: BMI 20.8
[2024-02-14] MEDS ORDERED: BUPIVACAINE HCL/PF 0.25% (2.5MG/ML) 10 ML VIAL ONE (09:50)
[2024-02-14] MEDS ORDERED: MIDAZOLAM HCL 2 MG/2 ML SINGLE DOSE VIAL ONE ×2 (12:58→13:02)
[2024-02-14] MEDS ORDERED: FENTANYL CITRATE/PF 50 MCG/ML VIAL ONE ×8 (13:05→15:36)
[2024-02-14] MEDS ORDERED: PROPOFOL 20 ML ONE (13:06)
[2024-02-14] MEDS ORDERED: SUCCINYLCHOLINE CHLORIDE 200 MG/10 ML SYRINGE ONE (13:08)
[2024-02-14] MEDS ORDERED: cefOXitin SODIUM 2 GM VIAL (RESTRICTED TO ID) IVPB ONE (13:10)
[2024-02-14] MEDS ORDERED: ROCURONIUM BROMIDE 50 MG/5 ML SYRINGE ONE (13:14)
[2024-02-14] MEDS: cefOXitin SODIUM 2 GM VIAL (RESTRICTED TO ID) IVPB ONE (13:18)
[2024-02-14] MEDS ORDERED: HEPARIN NA (PORCINE) 5,000 UNITS/ML 1ML VIAL ONE (13:20)
[2024-02-14] MEDS: HEPARIN NA (PORCINE) 5,000 UNITS/ML 1ML VIAL SQ ONE (13:20)
[2024-02-14] MEDS ORDERED: ONDANSETRON 4 MG/2 ML VIAL ONE ×3 (13:25→15:11)
[2024-02-14] MEDS ORDERED: DEXAMETHASONE SOD PHOSPHATE 4 MG/1 ML VIAL ONE ×2 (13:25→14:17)
[2024-02-14] MEDS: BUPIVACAINE HCL/PF 0.25% (2.5MG/ML) 10 ML VIAL IJ ONE (13:53)
[2024-02-14] MEDS ORDERED: SUGAMMADEX SODIUM 200 MG/2 ML VIAL ONE (14:25)
[2024-02-14] MEDS ORDERED: ACETAMINOPHEN INJECTION 100 ML IVPB ONE (15:07)
[2024-02-14] MEDS: ACETAMINOPHEN 1000 MG/100 ML BAG IVPB SCH (15:10)
[2024-02-14] MEDS: ONDANSETRON 4 MG/2 ML VIAL IVPUSH PRN (15:13)
[2024-02-14] MEDS ORDERED: oxyCODONE HCL 5 MG TABLET PO PRN (15:13)
[2024-02-14] MEDS ORDERED: HYDROmorphone HCl 2 MG/ML VIAL ONE (15:48)
[2024-02-14] MEDS: HYDROmorphone HCl 2 MG/ML VIAL IVPUSH ONE ×3 (15:50→18:19)
[2024-02-14] MEDS: PROMETHAZINE HCL 25 MG/1 ML VIAL IVPB ONE (16:17)
[2024-02-14] MEDS: LACTATED RINGERS SOLUTION 1,000 ML IV SCH (16:59)
[2024-02-14] MEDS: CEFAZOLIN SODIUM 2 GM in DEXTROSE 5%-WATER 100 ML IVPB ONE (17:21)
[2024-02-14] MEDS: oxyCODONE HCL 5 MG TABLET PO PRN (23:17)
[2024-02-15 09:58] LABS: BASO % 0.2 % (0-2.0); HEMATOCRIT 37.4 % (32.4-45.2); HEMOGLOBIN 12.3 GM/dL (10.7-15.3); LYMPH % 6.8 % (8-40); MCH 27.4 pg (25.7-33.7); MEAN PLT VOLUME 8.4 fl (7.5-11.1); MONO % 3.6 % (3.8-10.2); NEUT % 89.4 % (42.8-82.8); PLATELET COUNT 466 10^3/uL (134-434); RDW 15.3 % (11.6-15.6); WHITE BLOOD COUNT 17.9 K/mm3 (4.0-10.0)
[2024-02-15 10:08] LABS: POTASSIUM 4.2 mmol/L (3.5-5.1)
[2024-02-15 10:12] LABS: BLOOD UREA NITROGEN 8.1 mg/dL (7-18); CALCIUM 8.7 mg/dL (8.5-10.1)
[2024-02-15 10:16] LABS: CREATININE 0.7 mg/dL (0.55-1.3); PHOSPHOROUS 4.1 mg/dL (2.5-4.9)
[2024-02-15] MEDS: ENOXAPARIN NA (PORCINE) 40 MG/0.4 ML DISP.SYRIN SQ SCH (11:00)
[2024-02-15] MEDS: PANTOPRAZOLE 40 MG TABLET PO SCH (11:00)
[2024-02-15] MEDS: SUCRALFATE 1 GM/10 ML UNIT DOSE CUPS PO SCH ×2 (11:00→17:09)
[2024-02-15] MEDS: ONDANSETRON 4 MG/2 ML VIAL IVPUSH PRN (14:39)
[2024-02-15] MEDS: METOCLOPRAMIDE HCL INJECTION 10 MG/2 ML VIAL IVPUSH PRN (20:59)
[2024-02-16] MEDS: ACETAMINOPHEN 1000 MG/100 ML BAG IVPB ONE (04:40)
[2024-02-16 08:31] LABS: BASO % 0.2 % (0-2.0); EOS % 0.3 % (0-4.5); HEMATOCRIT 33.5 % (32.4-45.2); HEMOGLOBIN 11.3 GM/dL (10.7-15.3); LYMPH % 7.3 % (8-40); MCH 27.7 pg (25.7-33.7); MCHC 33.9 g/dl (32.0-36.0); MEAN CELL VOLUME 81.7 fl (80-96); NEUT % 86.2 % (42.8-82.8); PLATELET COUNT 449 10^3/uL (134-434); POTASSIUM 3.9 mmol/L (3.5-5.1); RDW 15.2 % (11.6-15.6)
[2024-02-16] MEDS: CEFAZOLIN SODIUM 2 GM in DEXTROSE 5%-WATER 100 ML IVPB ONE (08:35)
[2024-02-16 08:36] LABS: ALBUMIN 2.4 g/dl (3.4-5.0); BLOOD UREA NITROGEN 5.3 mg/dL (7-18); CALCIUM 8.2 mg/dL (8.5-10.1); MAGNESIUM 1.9 mg/dL (1.8-2.4)
[2024-02-16 08:39] LABS: CREATININE 0.5 mg/dL (0.55-1.3)
[2024-02-16 08:41] LABS: BILIRUBIN,TOTAL 0.9 mg/dL (0.2-1); TOT PROT 5.4 g/dl (6.4-8.2)
[2024-02-16] MEDS ORDERED: ACETAMINOPHEN 1000 MG/100 ML BAG IVPB PRN (10:46)
[2024-02-16] MEDS: ACETAMINOPHEN 1000 MG/100 ML BAG IVPB PRN (11:50)
[2024-02-16] MEDS: oxyCODONE HCL 5 MG TABLET PO PRN (14:24)
[2024-02-16] MEDS: ACETAMINOPHEN 325 MG TABLET (FP) PO SCH (18:01)
[2024-02-17] MEDS ORDERED: KETOROLAC TROMETHAMINE 15 MG/ML VIAL IVPUSH PRN (08:35)
[2024-02-17 09:15] LABS: BASO % 0.3 % (0-2.0); EOS % 0.4 % (0-4.5); HEMATOCRIT 35.9 % (32.4-45.2); LYMPH % 5.5 % (8-40); MCH 27.7 pg (25.7-33.7); MCHC 33.5 g/dl (32.0-36.0); MEAN CELL VOLUME 82.7 fl (80-96); MEAN PLT VOLUME 7.8 fl (7.5-11.1); MONO % 4.8 % (3.8-10.2); PLATELET COUNT 546 10^3/uL (134-434); RBC 4.34 M/mm3 (3.60-5.2); RDW 15.1 % (11.6-15.6); WHITE BLOOD COUNT 15.4 K/mm3 (4.0-10.0)
[2024-02-17 09:35] LABS: POTASSIUM 3.8 mmol/L (3.5-5.1)
[2024-02-17 09:42] LABS: CALCIUM 8.4 mg/dL (8.5-10.1)
[2024-02-17 09:43] LABS: ALBUMIN 2.7 g/dl (3.4-5.0); BLOOD UREA NITROGEN 3.8 mg/dL (7-18); MAGNESIUM 1.8 mg/dL (1.8-2.4)
[2024-02-17 09:46] LABS: CREATININE 0.4 mg/dL (0.55-1.3)
[2024-02-17] MEDS: KETOROLAC TROMETHAMINE 15 MG/ML VIAL IVPUSH SCH (11:15)
[2024-02-17] MEDS: SODIUM CHLORIDE 0.45% 1,000 ML IV SCH (11:16)
[2024-02-17] MEDS: ACETAMINOPHEN 1000 MG/100 ML BAG IVPB PRN (13:35)
[2024-02-18 09:23] LABS: BASO % 0.2 % (0-2.0); HEMATOCRIT 32.9 % (32.4-45.2); HEMOGLOBIN 10.8 GM/dL (10.7-15.3); MCH 27.4 pg (25.7-33.7); MCHC 32.9 g/dl (32.0-36.0); MEAN CELL VOLUME 83.4 fl (80-96); MEAN PLT VOLUME 7.5 fl (7.5-11.1); MONO % 6.7 % (3.8-10.2); NEUT % 84.1 % (42.8-82.8); PLATELET COUNT 480 10^3/uL (134-434); RBC 3.95 M/mm3 (3.60-5.2); RDW 14.7 % (11.6-15.6); WHITE BLOOD COUNT 11.1 K/mm3 (4.0-10.0)
[2024-02-18 09:39] LABS: CHLORIDE 105 mmol/L (98-107); POTASSIUM 3.5 mmol/L (3.5-5.1); SODIUM 134 mmol/L (136-145)
[2024-02-18 09:52] LABS: GLUCOSE,RANDOM 64 mg/dL (74-106)
[2024-02-18 09:53] LABS: ALBUMIN 2.3 g/dl (3.4-5.0); CALCIUM 7.9 mg/dL (8.5-10.1)
[2024-02-18 09:54] LABS: ANION GAP 11 mmol/L (4-13); CO2 18 mmol/L (21-32); MAGNESIUM 2.3 mg/dL (1.8-2.4)
[2024-02-18 09:55] LABS: SGPT/ALT 14 U/L (13-61)
[2024-02-18 09:56] LABS: BILIRUBIN,TOTAL 0.5 mg/dL (0.2-1); CREATININE 0.3 mg/dL (0.55-1.3); PHOSPHOROUS 3.1 mg/dL (2.5-4.9); SGOT/AST 16 U/L (15-37)
[2024-02-18 09:57] LABS: TOT PROT 5.2 g/dl (6.4-8.2)
[2024-02-18 10:05] LABS: ALK PHOS 232 U/L (45-117); BLOOD UREA NITROGEN 2.7 mg/dL (7-18)
[2024-02-18] MEDS: PSYLLIUM 5.85 GM PACKET PO SCH (14:11)
[2024-02-19] MEDS: ACETAMINOPHEN 1000 MG/100 ML BAG IVPB PRN (02:15)
[2024-02-19 08:49] LABS: BASO % 0.5 % (0-2.0); EOS % 3.1 % (0-4.5); HEMATOCRIT 31.4 % (32.4-45.2); HEMOGLOBIN 10.4 GM/dL (10.7-15.3); LYMPH % 12.1 % (8-40); MCH 27.6 pg (25.7-33.7); MCHC 33.3 g/dl (32.0-36.0); MEAN CELL VOLUME 83.1 fl (80-96); MEAN PLT VOLUME 7.5 fl (7.5-11.1); MONO % 8.9 % (3.8-10.2); NEUT % 75.4 % (42.8-82.8); PLATELET COUNT 514 10^3/uL (134-434); RBC 3.78 M/mm3 (3.60-5.2); RDW 14.8 % (11.6-15.6); WHITE BLOOD COUNT 8.3 K/mm3 (4.0-10.0)
[2024-02-19 09:13] LABS: CHLORIDE 106 mmol/L (98-107); POTASSIUM 3.4 mmol/L (3.5-5.1); SODIUM 135 mmol/L (136-145)
[2024-02-19 09:15] LABS: CALCIUM 8.1 mg/dL (8.5-10.1); GLUCOSE,RANDOM 90 mg/dL (74-106)
[2024-02-19 09:16] LABS: ALBUMIN 2.4 g/dl (3.4-5.0); ANION GAP 6 mmol/L (4-13); BLOOD UREA NITROGEN < 1.0 mg/dL (7-18); CO2 23 mmol/L (21-32); MAGNESIUM 1.7 mg/dL (1.8-2.4)
[2024-02-19 09:19] LABS: CREATININE 0.3 mg/dL (0.55-1.3); PHOSPHOROUS 2.8 mg/dL (2.5-4.9); SGOT/AST 16 U/L (15-37); SGPT/ALT 13 U/L (13-61)
[2024-02-19 09:21] LABS: BILIRUBIN,TOTAL 0.4 mg/dL (0.2-1); TOT PROT 5.3 g/dl (6.4-8.2)
[2024-02-19 09:25] LABS: ALK PHOS 275 U/L (45-117)
[2024-02-19] MEDS: LOPERAMIDE HCL 2 MG CAPSULE PO PRN (10:57)
[2024-02-19] MEDS ORDERED: MAG HYDROX/AL HYDROX/SIMETH 30 ML UNIT-DOSE CUP PO PRN (13:00)
[2024-02-19] MEDS: BACLOFEN 10 MG TABLET (FP) PO ONE (17:53)
[2024-02-19] MEDS: LACTOBACILLUS ACIDOPHILUS 1 TABLET PO SCH (17:53)
[2024-02-20] MEDS ORDERED: INSULIN (NOVOLOG) ASPART 100 UNITS/ML 10ML VIAL ONE (11:10)
[2024-02-20] MEDS: KETOROLAC TROMETHAMINE 15 MG/ML VIAL IVPUSH PRN (12:23)
[2024-02-20] MEDS: MAGNESIUM 2GM/50ML STERILE WATER IVPB IVPB ONE (13:07)
[2024-02-20] MEDS: POTASSIUM CHLORIDE TABS 20 MEQ TABLET.ER (FP) PO ONE (13:07)
[2024-02-20] MEDS: LOPERAMIDE HCL 2 MG CAPSULE PO SCH (13:17)
[2024-02-20 14:10] LABS: URINE APPEARANCE CLEAR; URINE BILIRUBIN NEGATIVE (NEGATIVE); URINE COLOR YELLOW; URINE GLUCOSE (UA) NEGATIVE (NEGATIVE); URINE KETONE 2+ (NEGATIVE); URINE LEUK ESTERASE NEGATIVE (NEGATIVE); URINE NITRITE NEGATIVE (NEGATIVE); URINE PROTEIN NEGATIVE (NEGATIVE); URINE UROBILINOGEN 0.2 mg/dL (0.2-1.0)
[2024-02-20] MEDS: ACETAMINOPHEN 325 MG TABLET (FP) PO ONE (20:18)
[2024-02-20] MEDS: KETOROLAC TROMETHAMINE 15 MG/ML VIAL IM ONE (21:00)
[2024-02-21 08:24] LABS: BASO % 0.5 % (0-2.0); EOS % 1.6 % (0-4.5); HEMATOCRIT 36.5 % (32.4-45.2); LYMPH % 15.6 % (8-40); MCH 26.9 pg (25.7-33.7); MCHC 32.8 g/dl (32.0-36.0); MEAN CELL VOLUME 82.1 fl (80-96); MEAN PLT VOLUME 7.6 fl (7.5-11.1); NEUT % 73.3 % (42.8-82.8); PLATELET COUNT 590 10^3/uL (134-434); RBC 4.44 M/mm3 (3.60-5.2); RDW 14.6 % (11.6-15.6); WHITE BLOOD COUNT 6.9 K/mm3 (4.0-10.0)
[2024-02-21 08:50] LABS: CALCIUM 8.9 mg/dL (8.5-10.1)
[2024-02-21 08:51] LABS: ALBUMIN 2.8 g/dl (3.4-5.0); BLOOD UREA NITROGEN 4.8 mg/dL (7-18); MAGNESIUM 2.3 mg/dL (1.8-2.4)
[2024-02-21 08:54] LABS: CREATININE 0.4 mg/dL (0.55-1.3)
[2024-02-21 08:56] LABS: BILIRUBIN,TOTAL 0.4 mg/dL (0.2-1); TOT PROT 6.1 g/dl (6.4-8.2)
[2024-02-21 15:57] VITALS: BP 110/76; PULSE 87; RESP 18; TEMP 98.6
== END 2024-02-21 17:34 | disposition home or self-care (01) | DRG 221 ==
LOC: J2C 02-14 04:25 → J8W 02-14 17:22
PROVIDERS: ADMIT Internal Medicine; ATTEND Nurse Practitioner Family
PROC: 0DB80ZZ Excision of Small Intestine, Open Approach (ICD-10-PCS; principal; 2024-02-14 12:00)
PROC: 0DSB0ZZ Reposition Ileum, Open Approach (ICD-10-PCS; 2024-02-14 12:00)
DX: Z43.2 Encounter for attention to ileostomy (principal); K56.7 Ileus, unspecified; E87.6 Hypokalemia; J45.909 Unspecified asthma, uncomplicated; R19.7 Diarrhea, unspecified; K91.89 Other postprocedural complications and disorders of digestive system; Y83.9 Surgical procedure, unspecified as the cause of abnormal reaction of the patient, or of later complication, without mention of misadventure at the time of the procedure
CPT/HCPCS: 36415; 74018-TC-FY; 74019-TC-FY; 80048; 80053; 81003; 81025; 83735; 84100; 85025; 86850; 86900; 86901; 87086; 88309-TC; 94760; J0131; J0475; J1644